=== PATIENT | male | born 1955 | race Caucasian/White ===

== ENCOUNTER 2022-08-18 14:39 | Inpatient (IN) ==
[2022-08-18 15:27] LABS: Basophils # (auto) 0.03 K/uL (0-0.2); Basophils % (auto) 0.3 %; Eosinophils % (auto) 0.9 %; Hematocrit (blood only) 43.7 % (42.0-52.0); Hemoglobin 14.3 g/dl (14.0-18.0); Immature Granulocytes % (auto) 0.9 %; Lymphocytes # (auto) 1.85 K/uL (1.2-3.4); Lymphocytes % (auto) 15.8 %; Mean Corpuscular Hemoglobin 29.4 pg (25.0-34.0); Mean Corpuscular Hgb Conc 32.7 g/dL (32.0-36.0); Mean Corpuscular Volume 89.7 fL (80.0-100.0); Mean Platelet Volume 8.8 fL (9.4-12.4); Monocytes # (auto) 0.76 K/uL (0.11-0.59); Monocytes % (auto) 6.5 %; Neutrophils # (auto) 8.87 K/uL (1.40-6.50); Neutrophils % (auto) 75.6 %; Platelet Count 236 K/uL (130-400); RDW Coefficient of Variation 13.4 % (11.5-14.5); RDW Standard Deviation 44.1 fL (36.4-46.3); Red Blood Count 4.87 M/uL (4.70-6.10); White Blood Count 11.71 K/ul (4.8-10.8)
--- NOTE | 2022-08-18 15:35 | Emergency Department Note ---
Impression & Plan Bilateral pulmonary embolism, Hypoxia ED Provider Note NAME: JUAN ANTONIO ROY AGE: 67 SEX: M : 1955 ARRIVES VIA: Walk-In INFORMANT: Patient, ED PROVIDER(S): Ki Galvan DO CHIEF COMPLAINT: Difficulty breathing HPI: The patient is a 67-year-old male who presented to the emergency department for an evaluation of shortness of breath. The patient was seen in our facility as well as by his primary care physician. He was initially seen by his primary care physician and started on an antibiotic. He was then seen in our facility. He had a complete work-up and was diagnosed with bronchitis. He was started on a new antibiotic. The patient states he has been having ongoing symptoms and he was contacted by his primary care physician who ordered outpatient laboratory studies. He was found to have a positive D-dimer. He was sent to the emergency department for further evaluation. The patient denies having any chest pain at this time. He does complain of some lower extremity swelling but no pain. He denies having any abdominal pain. He had no hemoptysis. The patient was found to be hypoxic on arrival to the emergency department and was placed on supplemental oxygen. He does not normally wear oxygen. ROS: See above HPI for pertinent positives & negatives. A total of 10 systems reviewed and were otherwise negative. PAST MEDICAL HISTORY: See Below PAST SURGICAL HISTORY: See Below FAMILY HISTORY: See Below SOCIAL HISTORY: See Below HOME MEDICATIONS: See Below ALLERGIES: See Below VITALS: See Below PHYSICAL EXAMINATION: GENERAL: Patient is awake alert in no acute distress patient is resting comfortably and showing no signs of anxiety EYES: The conjunctivae are clear. The pupils are round and reactive. EARS, NOSE, MOUTH AND THROAT: The nose is without any evidence of any deformity. Mucous membranes are moist. Tongue is midline. NECK: The neck is nontender and supple. RESPIRATORY: Diminished breath sounds are noted throughout. There is no wheezing. There is no tachypnea or conversational dyspnea. CARDIOVASCULAR: Regular rate and rhythm noted there no murmurs rubs or gallops normal S1 normal S2. GASTROINTESTINAL: The abdomen is soft. Abdomen is nontender. MUSCULOSKELETAL/EXTREMITIES: There is no evidence of gross deformity full range of motion is noted in the hips and shoulders. SKIN: Skin is warm and dry. Trace pedal edema was noted bilaterally. NEUROLOGIC: Patient is awake alert and oriented x3 MEDICAL DECISION MAKING: The patient is a 67-year-old male who presented to the emergency department for difficulty breathing. The patient was seen by his primary care physician and then in our emergency department recently for similar complaints. He was felt to be suffering from bronchitis as he had cough and difficulty breathing. He was started on medications for this but was not getting better. His primary care physician ordered an outpatient D-dimer which prompted the patient to come to the emergency department for further evaluation and CT of the chest. I discussed the patient's laboratory and radiographic studies with him. CT of the chest appears to be consistent with bilateral pulmonary embolism as well as possible pulmonary infarct. I discussed his condition with the on-call [facility]ist. The patient was started on heparin. The patient was placed on supplemental oxygen with significant improvement of his breathing. Triage Nursing notes reviewed. Prior medical records reviewed Vital Signs: reviewed and remarkable for elevated blood pressure and hypoxia. Differential diagnosis: Reactive airway disease, pneumonia, pneumothorax, COPD, CHF, infections, cardiac ischemia, pulmonary embolism, musculoskeletal, gastrointestinal, as well as other pathologies. ER treatment provided: See below Diagnostics interpreted by me: ECG: EKG was obtained in the emergency department. My interpretation is normal sinus rhythm at 67 bpm. There is no ectopy. There is no acute ST segment abnormalities noted. This was compared to a tracing from August 10, 2022. No leeroy nges were noted. Cardiac Monitoring: An order was placed for continuous cardiac monitoring. The monitor shows a rate of 73 bpm with sinus rhythm. Laboratory studies: As stated above and show below. Imaging studies: See below. Radiographic imaging was reviewed by myself Consultation(s): I discussed this case with Dylan who is on-call for the [facility]ist group ED COURSE: Procedures: none Critical Care: I have personally spent greater than 45 minutes of critical care time in the direct management of this patient. This includes bedside care, interpretation of diagnostic studies, and testing, discussion with consultants, patient, and family members, and other required patient management activities. This 45 minutes is in excess of all separately billable procedures. Past Med/Surg History Medical History Recurrent bacterial cystitis Surgical History H/O hernia repair 1963 History of root canal procedure 1988 Social History Smoking Status: Never smoker Do You Dip or Chew Tobacco: No; Hx Alcohol Use: No Preferred Language: Kyrgyz marital status: Current Living Situation: Spouse current occupational status: employed current occupation: Banker Feels Safe at Home: Yes Diet: regular Allergies Allergies Allergy/AdvReac Type Severity Reaction Status Date / Time amoxicillin Allergy Severe Hives Unverified 08/10/22 18:47 Home Meds Home Medications Medication Instructions Recorded Confirmed cholecalciferol (vitamin D3) 25 25 mcg PO DAILY 02/27/21 08/18/22 mcg (1,000 unit) tablet (Vitamin D3) tamsulosin 0.4 mg capsule (Flomax) 0.4 mg PO DAILY 02/27/21 08/18/22 zinc 50 mg tablet 50 mg PO DAILY 02/27/21 08/18/22 Previous Rx's Medication Instructions Recorded benzonatate 100 mg capsule 100 mg PO TID PRN cough #15 caps 08/10/22 Results & Data (ED) Vital Signs Vital Signs - 24 hr 08/18/22 14:42 08/18/22 14:45 08/18/22 16:14 Temperature 36.6 C Temperature Source Temporal Artery Scan Pulse Rate 79 73 Respiratory Rate 20 Respiratory Effort / Characteristics Non-Labored Spontaneous Respiratory Depth Normal Blood Pressure 170/83 H Blood Pressure Mean 112 Pulse Oximetry 89 L 94 Oxygen Delivery Method Room Air Nasal Cannula Oxygen Flow Rate 2 Sepsis Recent Fever Within 48 Hours No Sepsis New/Unexplained Change in Mental Status No Sepsis Action Taken by Nursing No Action Required Home Medications Current Medication List: was personally reviewed by me Laboratory Data Attestation: I reviewed the patient's lab results. 08/18/22 15:13 08/18/22 15:13 Lab Results 08/18/22 08/18/22 08/18/22 Range/Units 15:13 15:13 15:13 WBC 11.71 H (4.8-10.8) K/ul RBC 4.87 (4.70-6.10) M/uL Hgb 14.3 (14.0-18.0) g/dl Hct 43.7 (42.0-52.0) % MCV 89.7 (80.0-100.0) fL MCH 29.4 (25.0-34.0) pg MCHC 32.7 (32.0-36.0) g/dL RDW Std Deviation 44.1 (36.4-46.3) fL RDW Coeff of Louie 13.4 (11.5-14.5) % Plt Count 236 (130-400) K/uL MPV 8.8 L (9.4-12.4) fL Immature Gran % (Auto) 0.9 % Neut % (Auto) 75.6 % Lymph % (Auto) 15.8 % [place] % (Auto) 6.5 % Eos % (Auto) 0.9 % Baso % (Auto) 0.3 % Neut # (Auto) 8.87 H (1.40-6.50) K/uL Lymph # (Auto) 1.85 (1.2-3.4) K/uL [place] # (Auto) 0.76 H (0.11-0.59) K/uL Eos # (Auto) 0.10 (0-0.50) K/uL Baso # (Auto) 0.03 (0-0.2) K/uL Immature Gran # (Auto) 0.10 (0.01-0.20) K/uL PT 11.9 (9.0-12.0) Seconds INR 1.1 (0.9-1.1) APTT 27.5 (21.0-31.0) Seconds PTT Ratio 1.0 Sodium 138 (136-145) mmol/L Potassium 4.5 (3.5-5.1) mmol/L Chloride 102 (98-107) mmol/L Carbon Dioxide 30 (21-32) mmol/L Anion Gap 6 (3-11) BUN 17 (6-23) mg/dl Creatinine 1.20 (0.6-1.4) mg/dl Est Cr Clr Drug Dosing 71.5 ml/min Est GFR ( Amer) 71.1 ml/min Est GFR (Non-Af Amer) 61.3 ml/min BUN/Creatinine Ratio 14.2 (10-20) Glucose 94 (70-99(Fasting)) mg/dl Calcium 9.3 (8.6-10.3) mg/dl Total Bilirubin 0.4 (0.2-1.0) mg/dl AST 26 (13-39) U/L ALT 34 (7-52) U/L Alkaline Phosphatase 66 (34-104) U/L Troponin I High Sens 5.8 (0-20) pg/ml Total Protein 7.0 (6.0-8.3) gm/dl Albumin 3.7 (3.4-5.0) gm/dl Globulin 3.3 (2.5-4.0) gm/dl Albumin/Globulin Ratio 1.1 (0.9-2) Administered Medications Discontinued Medications Ioversol (Optiray 320 500ml) 113 ml IV ONCE ONE Stop: 08/18/22 15:48 Last Admin: 08/18/22 15:48 Dose: 113 ml Documented By: KEKE Imaging Data Attestation: I personally reviewed and interpreted this imaging study as follows: My Impression: CT of the chest was obtained in the emergency department. My interpretation is bilateral pulmonary embolism, final report pending. Radiologist's Impression: Chest CTA 08/18/22 14:50 CT angio chest PE protocol CLINICAL HISTORY: PE TECHNIQUE: Multidetector row helical CT of the chest was performed with angiographic protocol. Coronal and sagittal reformations were obtained. Coronal and sagittal MIPS were obtained from the axial data set and were submitted for review. Automated dose lowering techniques and/or adjustment according to patient size were utilized for this exam. CT DOSE: 839.32 mGy.cm Comparison: None available at the time of this dictation. FINDINGS: Lungs and pleura: Airspace opacity is in the right greater than left lower lobe. Heart and pericardium: No right heart strain is seen. Vessels: There is extensive pulmonary embolus in the right main pulmonary artery as well as numerous lobar, segmental, and subsegmental emboli in the bilateral lower lungs. Mediastinum and antonia: Unremarkable. Chest wall and lower neck: Unremarkable. Abdomen: Unremarkable. Bones: Unremarkable. IMPRESSION: Extensive main branch, lobar, segmental, and subsegmental pulmonary emboli without evidence of right heart strain. Airspace densities in the bilateral lower lungs may represent developing pulmonary infarcts versus atelectasis/pneumonia. ACT 112: Negative or not required by law. Electronically signed by: Balbir Garcia M.D. 08/18/2022 4:21 PM Discharge Plan Visit Data Chief Complaint: Testing Request Stated Complaint: REF FOR BLOOD CLOT, WANTS CT ED Provider: Ki Galvan Discharge Problem: Bilateral pulmonary embolism, Hypoxia Patient Disposition: Being Evaluated by Hospitalist Forms Stand Alone Forms: My [facility] Prescriptions Prescriptions: No Action benzonatate 100 mg capsule 100 mg PO TID PRN (Reason: cough) Qty: 15 0RF tamsulosin [Flomax] 0.4 mg capsule 0.4 mg PO DAILY zinc 50 mg Tablet 50 mg PO DAILY cholecalciferol (vitamin D3) [Vitamin D3] 25 mcg (1,000 unit) Tablet 25 mcg PO DAILY Referrals Referrals: Dave Mary MD [Primary Care Provider] -
[2022-08-18 15:47] LABS: Albumin Globulin Ratio 1.1 (0.9-2); Albumin Level 3.7 gm/dl (3.4-5.0); BUN Creatinine Ratio 14.2 (10-20); Bilirubin,Total 0.4 mg/dl (0.2-1.0); Calcium 9.3 mg/dl (8.6-10.3); Creatinine Clr Calc Pharmacy 71.5 ml/min; Est GFR (African American) 71.1 ml/min; Est GFR (Non-African American) 61.3 ml/min; Globulin 3.3 gm/dl (2.5-4.0); Potassium 4.5 mmol/L (3.5-5.1)
[2022-08-18] MEDS ORDERED: OPTIRAY 320 500ml IV ONE (15:47)
[2022-08-18 15:51] LABS: Troponin I High Sensitivity 5.8 pg/ml (0-20)
[2022-08-18] MEDS ORDERED: Heparin IV Adult Wt-Based Standard WITH Bolus Protocol IV STA (15:55)
[2022-08-18 16:09] LABS: INR 1.1 (0.9-1.1); Partial Thromboplastin Time 27.5 Seconds (21.0-31.0); Prothrombin Time 11.9 Seconds (9.0-12.0)
[2022-08-18] MEDS ORDERED: HEPARIN SOD (PORCINE) 1000 UNIT/ML IV ONE ×2 (16:10→16:45)
--- NOTE | 2022-08-18 16:10 | History & Physical Report ---
Date of Service August 18, 2022 Assessment & Plan (1) Acute respiratory failure with hypoxia: Plan: -Admit to the PCU on tele and pulse oximetry -Currently stable on 2L NC, hemodynamically stable, without chest pain -Unsure of the etiology at this time, could have been the long car drive to and from [place] approximately 3 weeks ago -Hypercoagulable workup obtained prior to starting heparin drip, continue heparin drip overnight, can covert to oral therapy when stable -Wean off O2 as able, goal is 95% as he is without previous hx of lung disease -Will obtain TTE tomorrow -Heparin for DVT PPX -AM CBC, BMP, PT/INR and aptt (2) Bilateral pulmonary embolism: Plan: -See acute hypoxic respiratory failure (3) BPH loc w urin obs/LUTS: Plan: -Continue flomax (4) Cough: Plan: -Likely due to his PE's, may have had a component of pneumonia/vial illness a few weeks ago -No hemoptysis -Prn robitussin Plan The patient was discussed with Dr. Han at the time of the admission History of Present Illness Chief Complaint: Abnormal outpatient labs Primary Care Provider: Dave Mary MD Keegan is a 67 year old male with a PMH consistent with obesity, vit D deficiency, and BPH who presented to the [facility] ED on 08/18/22 at the recommendation of his PCP for significantly elevated D-dimer. In the ED the patient was noted to be hypoxic in the high 80's on RA but otherwise stable. Labs were significant for an improving leukocytosis of 11 with left shift of 8 compared to 08/10, CMP WNL, and full respiratory biofire panel in process at the time of admission. CTA of the chest with PE protocol shows "Extensive main branch, lobar, segmental, and subsegmental pulmonary emboli without evidence of right heart strain. Airspace densities in the bilateral lower lungs may represent developing pulmonary infarcts versus atelectasis/pneumonia.". Prior to admission the patient was ordered a heparin drip. We were able to obtain his initial hypercoagulable workup prior to the heparin drip being started. At the time of the exam the patient was sitting in bed in no acute distress with his sitting bedside, history was obtained from both. The patient initially started to develop a productive cough wit green sputum and BUENO appr oximately 2-3 weeks ago. He was seen by his PCP who prescribed him a 5 day course of antibiotics and albuterol, which he completed without improvement of his symptoms. He was seen at the [facility] ED on 08/10/22 for the same symptoms and was discharged on a 7 day course of cefdinir and Tessalon pearls, again, without relief. His PCP ordered an outpatient D-dimer yesterday which came back significantly elevated and called the patient to go to the ED for the CT scan. The patient denies a previous history of tobacco abuse, recent procedures/surgery, recent injuries, previous cancer, and previous hx of h ypercoagulability. The patient and his did drive to [place] approximately 3 weeks ago to help their son move. They took multiple stops during the trip where he got out of the car and walked. He does not think he injured his legs while helping his son move. He is unsure if he was having his symptoms prior to the trip. He is currently very comfortable in bed and is asymptomatic, he is getting SOB with exertion. When asked, he denies asymmetric leg swelling, erythema, or pain. His thinks that he has been having increased BL leg swelling but no erythema. Please refer to Dr. Han's attestation for any changes to the treatment plan. Allergies Allergy/AdvReac Type Severity Reaction Status Date / Time amoxicillin Allergy Severe Hives Unverified 08/10/22 18:47 Home Medications Medication Instructions Recorded Confirmed Type cholecalciferol (vitamin D3) 25 25 mcg PO DAILY 02/27/21 08/18/22 History mcg (1,000 unit) tablet (Vitamin D3) tamsulosin 0.4 mg capsule (Flomax) 0.4 mg PO DAILY 02/27/21 08/18/22 History zinc 50 mg tablet 50 mg PO DAILY 02/27/21 08/18/22 History benzonatate 100 mg capsule 100 mg PO TID PRN cough #15 caps 08/10/22 08/18/22 Rx apixaban 5 mg (74 tabs) tablets in 5 mg PO BID #74 ea 08/19/22 Rx a dose pack (Eliquis) Past Med/Surg History Medical History Recurrent bacterial cystitis Surgical History H/O hernia repair 1963 History of root canal procedure 1988 Social History Smoking Status: Never smoker Do You Dip or Chew Tobacco: No; Hx Alcohol Use: No Hx Substance Use: No Preferred Language: Kosovan Communication Ability: Effective Heavy Media Operator Required: No Beliefs That Will Affect Care: None marital status: Current Living Situation: Spouse current occupational status: employed current occupation: Banker Feels Safe at Home: Yes Diet: regular Assistive Devices: None Physical Exam Physical Exam: Physical Exam: General: In no acute distress, stated age, well-nourished, good hygiene HEENT: Normocephalic, atraumatic, no scleral icterus, pupils around round, symmetrical, and reactive to light, moist mucus membranes, trachea midline, no thyromegaly Chest/Pulm: No respiratory distress, symmetrical chest expansion, clear breath sounds throughout Cardiac: RRR, no murmurs noted Abdomen: Negative for ascites and bruising, normoactive bowel sounds, soft, non-tender to palpation throughout Musculoskeletal: Symmetrical and without signs of acute trauma, upper and lower extremities with full ROM, no atrophy, spasticity, or flaccidity Extremities: Radial, dorsalis pedis, and posterior tibial pulses are intact and symmetrical, +1 edema noted in the BL LE's Skin: Warm, dry, no rashes , lesions, or scars noted Neuro: Alert and oriented to person, place, month, year, and president, no focal defects, CN II-XII tested and intact, no tremors noted Psych: No acute distress, calm and cooperative during the exam Results & Data Results & Data Vital Signs (Past 12 Hours) Vital Signs Temp Pulse Resp BP Pulse Ox O2 Del Method O2 Flow Rate 08/18/22 14:45 94 Nasal Cannula 2 08/18/22 14:42 36.6 C 79 20 170/83 H 89 L Room Air Laboratory Results Abnormal lab results 08/18/22 Range/Units 15:13 WBC 11.71 H (4.8-10.8) K/ul MPV 8.8 L (9.4-12.4) fL Neut # (Auto) 8.87 H (1.40-6.50) K/uL [place]itus # (Auto) 0.76 H (0.11-0.59) K/uL Diagnostic Findings Chest CTA 08/18/22 14:50 CT angio chest PE protocol CLINICAL HISTORY: PE TECHNIQUE: Multidetector row helical CT of the chest was performed with angiographic protocol. Coronal and sagittal reformations were obtained. Coronal and sagittal MIPS were obtained from the axial data set and were submitted for review. Automated dose lowering techniques and/or adjustment according to patient size were utilized for this exam. CT DOSE: 839.32 mGy.cm Comparison: None available at the time of this dictation. FINDINGS: Lungs and pleura: Airspace opacity is in the right greater than left lower lobe. Heart and pericardium: No right heart strain is seen. Vessels: There is extensive pulmonary embolus in the right main pulmonary artery as well as numerous lobar, segmental, and subsegmental emboli in the bilateral lower lungs. Mediastinum and antonia: Unremarkable. Chest wall and lower neck: Unremarkable. Abdomen: Unremarkable. Bones: Unremarkable. IMPRESSION: Extensive main branch, lobar, segmental, and subsegmental pulmonary emboli without evidence of right heart strain. Airspace densities in the bilateral lower lungs may represent developing pulmonary infarcts versus atelecta sis/pneumonia. ACT 112: Negative or not required by law. Electronically signed by: Balbir Garcia M.D. 08/18/2022 4:21 PM ECG Additional Comments: Normal sinus rhythm Normal ECG When compared with ECG of 10-AUG-2022 18:07, Nonspecific T wave abnormality no longer evident in Anterior leads Code Status & VTE Plan Code Status Full code VTE Prophylaxis Plan VTE Prophylaxis will be ordered: Yes Supervising Physician Co-Signing Physician Notes Patient seen and examined, chart reviewed, case discussed with Dylan Ricci PA-C and I agree with the assessment and plan as above except as otherwise noted Labs and images reviewed 67-year-old male who presents with acute hypoxic respiratory failure after long car drive. Found to have bilateral PEs. At bedside patient denies chest pain, chest pressure, and inspiratory pain does endorse shortness of breath. Has not had any family history of bleeding diathesis or leg swelling, no leg injuries. Lungs are clear, pulse is tachycardic on admission. No leg asymmetry. Agree with anticoagulation, target conversion to DOAC and discharge if remaining stable. Agree with assessment and chronic management as noted above. PG Care Time/CCT Total # of Minutes Spent Total Time Spent with Patient: Total time spent is greater than 50% in coordination of care (as documented) at patient's floor/unit and/or counseling patient: Coding [place] [address] INT INP/OBS CARE 3/75MIN Patient Type Established Medical Decision Making High Complexity Diagnoses Acute respiratory failure with hypoxia J96.01 Bilateral pulmonary embolism I26.99 BPH loc w urin obs/LUTS N40.1 Cough R05.9
[2022-08-18] MEDS ORDERED: Heparin IV Adult Wt-Based Standard WITH Bolus Protocol IV SCH (16:15)
--- NOTE | 2022-08-18 16:23 | CT Scan Report ---
CT angio chest PE protocol CLINICAL HISTORY: PE TECHNIQUE: Multidetector row helical CT of the chest was performed with angiographic protocol. Kennedy l and sagittal reformations were obtained. Coronal and sagittal MIPS were obtained from the axial doug a set and were submitted for review. Automated dose lowering techniques and/or adjustment according to patient size were utilized for this exam. CT DOSE: 839.32 mGy.cm Comparison: None available at the time of this dictation. FINDINGS: Lungs and pleura: Airspace opacity is in the right greater than left lower lobe. Heart and pericardium: No right heart strain is seen. Vessels: There is extensive pulmonary embolus in the right main pulmonary artery as well as numerous lobar, segmental, and subsegmental emboli in the bilateral lower lungs. Mediastinum and antonia: Unremarkable. Chest wall and lower neck: Unremarkable. Abdomen: Unremarkable. Bones: Unremarkable. IMPRESSION: Extensive main branch, lobar, segmental, and subsegmental pulmonary emboli without evidence of right heart strain. Airspace densities in the bilateral lower lungs may represent developing pulmonary infa rcts versus atelectasis/pneumonia. ACT 112: Negative or not required by law. Electronically signed by: Balbir Garcia M.D. 08/18/2022 4:21 PM
[2022-08-18] MEDS: HEPARIN SODIUM/DEXTROSE 25,000 UNITS/500 ML BAG IV SCH (16:43)
[2022-08-18 17:14] LABS: Adenovirus PCR Not Detected (NotDetected); Bordetella parapertussis PCR Not Detected (NotDetected); Bordetella pertussis PCR Not Detected (NotDetected); Chlamydia pneumoniae PCR Not Detected (NotDetected); Coronavirus 229E PCR Not Detected (NotDetected); Coronavirus CoV-2 (COVID19)PCR Not Detected (NotDetected); Coronavirus HKU1 PCR Not Detected (NotDetected); Coronavirus NL63 PCR Not Detected (NotDetected); Coronavirus OC43PCR Not Detected (NotDetected); Human Metapneumovirus PCR Not Detected (NotDetected); Influenza A PCR Not Detected (NotDetected); Influenza B PCR Not Detected (NotDetected); Mycoplasma pneumoniae PCR Not Detected (NotDetected); Parainfluenza Virus 1 PCR Not Detected (NotDetected); Parainfluenza Virus 2 PCR Not Detected (NotDetected); Parainfluenza Virus 3 PCR Not Detected (NotDetected); Parainfluenza Virus 4 PCR Not Detected (NotDetected); Respiratory Syncytial VirusPCR Not Detected (NotDetected); Rhinovirus/Enterovirus PCR Not Detected (NotDetected)
[2022-08-18] MEDS: guaiFENesin SUGAR FREE 200 MG/10 ML UDC PO PRN (18:31)
--- NOTE | 2022-08-18 20:31 | Electrocardiogram Report ---
Test Reason : Blood Pressure : / mmHG Vent. Rate : 067 BPM Atrial Rate : 067 BPM P-R Int : 140 ms QRS Dur : 094 ms QT Int : 406 ms P-R-T Axes : 065 044 069 degrees QTc Int : 429 ms Normal sinus rhythm Normal ECG When compared with ECG of 10-AUG-2022 18:07, Nonspecific T wave abnormality no longer evident in Anterior leads Confirmed by Tyrell Mary ([id number]) on 08/18/2022 8:30:47 PM Referred By: Confirmed By:Mitchell Mary
[2022-08-18] MEDS ORDERED: ACETAMINOPHEN 325 MG TAB PO PRN (21:35)
[2022-08-19] MEDS: guaiFENesin SUGAR FREE 200 MG/10 ML UDC PO PRN (00:35)
[2022-08-19] MEDS ORDERED: KETOROLAC TROMETHAMINE 15 MG/ML VIAL IV ONE (00:50)
[2022-08-19] MEDS ORDERED: BENZONATATE 100 MG CAPSULE PO PRN (00:50)
[2022-08-19 01:18] LABS: Partial Thromboplastin Ratio 1.7
[2022-08-19 01:19] LABS: Partial Thromboplastin Time 46.7 Seconds (21.0-31.0)
[2022-08-19] MEDS: HEPARIN SODIUM/DEXTROSE 25,000 UNITS/500 ML BAG IV SCH (07:19)
[2022-08-19 07:54] LABS: Basophils # (auto) 0.03 K/uL (0-0.2); Basophils % (auto) 0.3 %; Eosinophils # (auto) 0.07 K/uL (0-0.50); Eosinophils % (auto) 0.7 %; Hematocrit (blood only) 41.5 % (42.0-52.0); Hemoglobin 13.8 g/dl (14.0-18.0); Immature Granulocytes # (auto) 0.09 K/uL (0.01-0.20); Immature Granulocytes % (auto) 0.9 %; Lymphocytes # (auto) 2.04 K/uL (1.2-3.4); Lymphocytes % (auto) 20.2 %; Mean Corpuscular Hemoglobin 29.2 pg (25.0-34.0); Mean Corpuscular Hgb Conc 33.3 g/dL (32.0-36.0); Mean Corpuscular Volume 87.7 fL (80.0-100.0); Monocytes # (auto) 0.81 K/uL (0.11-0.59); Neutrophils # (auto) 7.08 K/uL (1.40-6.50); Neutrophils % (auto) 69.9 %; Platelet Count 202 K/uL (130-400); RDW Coefficient of Variation 13.5 % (11.5-14.5); RDW Standard Deviation 43.6 fL (36.4-46.3); Red Blood Count 4.73 M/uL (4.70-6.10); White Blood Count 10.12 K/ul (4.8-10.8)
--- NOTE | 2022-08-19 08:03 | Hospitalist Progress Note ---
Date of Service August 19, 2022 Assessment & Plan (1) Acute respiratory failure with hypoxia: Plan: -Admit to the PCU on tele and pulse oximetry -Currently stable on 2L NC, hemodynamically stable, without chest pain -Unsure of the etiology at this time, could have been the long car drive to and from [place] approximately 3 weeks ago -Hypercoagulable workup obtained prior to starting heparin drip, continue heparin drip overnight, can covert to oral therapy when stable -Wean off O2 as able, goal is 95% as he is without previous hx of lung disease -Will obtain TTE tomorrow -Heparin for DVT PPX -AM CBC, BMP, PT/INR and aptt (2) Bilateral pulmonary embolism: Plan: -See acute hypoxic respiratory failure (3) BPH loc w urin obs/LUTS: Plan: -Continue flomax (4) Cough: Plan: -Likely due to his PE's, may have had a component of pneumonia/vial illness a few weeks ago -No hemoptysis -Prn robitussin Plan The patient was discussed with Dr. Han at the time of the admission Admission and Anticipated Discharge Date Admission Date: August 18, 2022 Results & Data Results & Data Vital Signs (Past 12 Hours) Vital Signs Temp Pulse Pulse Resp BP Pulse Ox O2 Del Method 08/19/22 07:52 36.8 C 64 18 151/88 H 96 Nasal Cannula 08/19/22 04:17 67 08/19/22 03:00 36.7 C 61 20 137/81 99 Nasal Cannula 08/18/22 23:00 36.7 C 65 18 163/84 H 98 Nasal Cannula O2 Flow Rate 08/19/22 07:52 2.0 08/19/22 04:17 08/19/22 03:00 2 08/18/22 23:00 2
[2022-08-19 08:14] LABS: Albumin Globulin Ratio 1.1 (0.9-2); Albumin Level 3.5 gm/dl (3.4-5.0); BUN Creatinine Ratio 16.7 (10-20); Bilirubin,Total 0.6 mg/dl (0.2-1.0); Calcium 9.2 mg/dl (8.6-10.3); Creatinine Clr Calc Pharmacy 83.3 ml/min; Est GFR (African American) 86.5 ml/min; Est GFR (Non-African American) 74.6 ml/min; Globulin 3.1 gm/dl (2.5-4.0); Potassium 4.5 mmol/L (3.5-5.1); Total Protein 6.6 gm/dl (6.0-8.3)
[2022-08-19 08:39] LABS: INR 1.1 (0.9-1.1); Partial Thromboplastin Ratio 1.6; Prothrombin Time 12.2 Seconds (9.0-12.0)
[2022-08-19 08:40] LABS: Partial Thromboplastin Time 44.6 Seconds (21.0-31.0)
[2022-08-19] MEDS ORDERED: TAMSULOSIN HCL 0.4 MG CAP PO SCH (09:00)
[2022-08-19] MEDS: APIXABAN 5 MG TABLET PO SCH ×2 (09:17→17:51)
--- NOTE | 2022-08-19 11:36 | XCELERA ---
[id number]
--- NOTE | 2022-08-19 16:31 | Discharge Summary ---
Date of Service August 19, 2022 Admission HPI Per Admitting Provider Keegan is a 67 year old male with a PMH consistent with obesity, vit D deficiency, and BPH who presented to the [facility] ED on 08/18/22 at the recommendation of his PCP for significantly elevated D-dimer. In the ED the patient was noted to be hypoxic in the high 80's on RA but otherwise stable. Labs were significant for an improving leukocytosis of 11 with left shift of 8 compared to 08/10, CMP WNL, and full respiratory biofire panel in process at the time of admission. CTA of the chest with PE protocol shows "Extensive main branch, lobar, segmental, and subsegmental pulmonary emboli without evidence of right heart strain. Airspace densities in the bilateral lower lungs may represent developing pulmonary infarcts versus atelectasis/pneumonia.". Prior to admission the patient was ordered a heparin drip. We were able to obtain his initial hypercoagulable workup prior to the heparin drip being started. At the time of the exam the patient was sitting in bed in no acute distress with his sitting bedside, history was obtained from both. The patient initially started to develop a productive cough wit green sputum and BUENO approximately 2-3 weeks ago. He was seen by his PCP who prescribed him a 5 day course of antibiotics and albuterol, which he completed without improvement of his symptoms. He was seen at the [facility] ED on 08/10/22 for the same symptoms and was discharged on a 7 day course of cefdinir and Tessalon pearls, again, without relief. His PCP ordered an outpatient D-dimer yesterday which came back significantly elevated and called the patient to go to the ED for the CT scan. The patient denies a previous history of tobacco abuse, recent procedures/surgery, recent injuries, previous cancer, and previous hx of hypercoagulability. The patient and his did drive to [place] approximately 3 weeks ago to help their son move. They took multiple stops during the trip where he got out of the car and walked. He does not think he injured his legs while helping his son move. He is unsure if he was having his symptoms prior to the trip. He is currently very comfortable in bed and is asymptomatic, he is getting SOB with exertion. When asked, he denies asymmetric leg swelling, erythema, or pain. His thinks that he has been having increased BL leg swelling but no erythema. Please refer to Dr. Han's attestation for any changes to the treatment plan. Admission Exam Per Admitting Provider General:In no acute distress, stated age, well-nourished, good hygiene HEENT:Normocephalic, atraumatic, no scleral icterus, pupils around round, symmetrical, and reactive to light, moist mucus membranes, trachea midline, no thyromegaly Chest/Pulm:No respiratory distress, symmetrical chest expansion, clear breath sounds throughout Cardiac:RRR, no murmurs noted Abdomen:Negative for ascites and bruising, normoactive bowel sounds, soft, non-tender to palpation throughout Musculoskeletal:Symmetrical and without signs of acute trauma, upper and lower extremities with full ROM, no atrophy, spasticity, or flaccidity Extremities:Radial, dorsalis pedis, and posterior tibial pulses are intact and symmetrical, +1 edema noted in the BL LE's Skin:Warm, dry, no rashes , lesions, or scars noted Neuro:Alert and oriented to person, place, month, year, and president, no focal defects, CN II-XII tested and intact, no tremors noted Psych:No acute distress, calm and cooperative during the exam Principal Diagnosis Bilateral lobar, segmental, and subsegmental pulmonary emboli. Discharge Exam General: No acute distress HEENT: PERRLA. Normal conjunctiva, anicteric sclera. Oropharynx normal. Respiratory: Normal respiratory effort, diminished breath sounds at left lung base. Otherwise clear to auscultation bilaterally with good air movement. Cardiovascular: RRR without murmurs, gallops, or rubs. No pedal edema. GI: Soft abdomen with normal bowel sounds heard on auscultation. Nontender x4 quadrants. Neuro: Alert and oriented x3. Discharge Data Allergies Allergy/AdvReac Type Severity Reaction Status Date / Time amoxicillin Allergy Severe Hives Unverified 08/10/22 18:47 Consultations 08/18/22 16:04 ED Decision to Admit Stat Ordered Studies 08/18/22 14:50 CT angio chest PE protocol Stat Hospital Course (1) Bilateral pulmonary embolism: 67 M with no significant past medical history, save BPH on tamsulosin, who presented with persistent cough x3 weeks, elevated D-dimer and clinic and was admitted for bilateral lobar, segmental, and subsegmental pulmonary emboli discovered on CTA. Now stable, and on p.o. anticoagulation. Bilateral pulmonary emboli -Cough x3 weeks. Apparently began after long trip to [place]. Cough unresponsive to supportive therapy. -D-dimer ordered on outpatient clinic follow-up, found to be severely elevated. Sent to the emergency room. -Chest CTA: Extensive main branch, lobar, segmental, and subsegmental pulmonary emboli without evidence of right heart strain. Airspace densities in the bilateral lower lungs may represent developing pulmonary infarction versus atelectasis/pneumonia. -Started on IV heparin. Transitioned to oral apixaban 10 mg in the a.m. -No evidence of right heart strain on EKG, subsequent echocardiogram (EF=55-60%, normal LV wall motion). * Discharged on apixaban 10 mg twice daily x7 days, then 5 mg twice daily x3 months. * Prescribed Eliquis x1 month starter pack. Follow-up with outpatient PCP for subsequent refills for remainder of treatment course. BPH -Chronic; managed on tamsulosin 0.4 mg daily. * Continue home regimen. (2) BPH loc w urin obs/LUTS: Total Time Total Time Spent Total Time Spent (In Minutes): Please see attending attestation. Discharge Plan Discharge Items Patient Disposition: Home - Self-Care Reason For Visit: ABDNORMAL OUTPATIENT LABS Discharge Diagnosis: Bilateral pulmonary emboli Activity: Per Instructions section Non-emergency contact: Primary Care Provider Call non-emergency contact if: you have any medication questions Follow-up/Referrals: Dave Mary MD [Primary Care Provider] - (PCP follow up appointment to be made 5 to 7 days after discharge. Office was closed at time of discharge. Please call office to schedule follow up appointment first thing 08/20/22. thank you) Diet: Regular Addtl Attending Provider Instructions: Dear Keegan, You were brought to the hospital from the clinic because of your elevated D- dimer. We evaluated you further and found that you had multiple blood clots of your lungs bilaterally, a condition known as a pulmonary embolism (emboli). You were started on intravenous anticoagulants, which we transitioned to oral anticoagulants this morning. You had an ultrasound of your heart scanned to confirm that you did not have further damage to your heart as a result, which you did not. Therefore, we feel you are ready to be discharged home. 1. We started you on a medication called apixaban, or Eliquis. Please take apixaban 10 mg twice daily for 7 days, then take 5 mg twice daily for 3 months. 2. Please follow-up with your primary care physician within 1 to 2 weeks of your discharge. It is important that you visit with your PCP so that they can further coordinate your care if necessary. 3. You may continue to take your other home medications as directed, unless otherwise instructed to by your primary care physician. Thank you for entrusting us with your care here at [facility]. If you have any questions or concerns about your care here, you may reach us at [phone]. Pending Studies at Discharge: Yes Stand-Alone Forms: [facility], Smoking Cessation Medications and DC Order Prescriptions: New Eliquis 5 mg (74 tabs) tablets,dose pack 5 mg PO BID Qty: 74 0RF Continued benzonatate 100 mg capsule 100 mg PO TID PRN (Reason: cough) Qty: 15 0RF tamsulosin [Flomax] 0.4 mg capsule 0.4 mg PO DAILY zinc 50 mg Tablet 50 mg PO DAILY cholecalciferol (vitamin D3) [Vitamin D3] 25 mcg (1,000 unit) Tablet 25 mcg PO DAILY Discharge Orders: Discharge Order (Routine); Ordered 08/19/22 Ordered By: Starr Jane Admission Data Admit Date/Time: 08/18/22 16:27 Attending Provider: Aureliano Blackwell Admit Provider: Dilip Han Primary Care Provider: Dave Mary Other Providers: Dilip Han Other Interventions: Discharge Summary Assessment (RN) Last Done: 08/19/22 17:33 Supervising Physician Co-Signing Physician Notes Attending attestation Pt seen and examined in concert with Dr. Jane. In agreement with the documented findings as noted in the resident documentation with any exceptions or additions as noted here. resting comfortably in bed with ongoing mild nonproductive cough c/w admission. On examination, S1/S2 nl RRR no MCG. CTAB. Abd NT/ND BS+ve Pulmonary embolism, provoked following long car ride - transitioned to DOAC and tolerating without adverse effect. 3 month course recommended. TTE and labs as noted. Follow up with PCP. Else see resident documentation as noted. Total attending physician time spent with this patient's care on the day of discharge: 35 minutes. Resident Activity Tracking Resident Involvement: Resident Care Provided Care Provided: Adult [facility]
--- NOTE | 2022-08-19 17:01 | Communication Note ---
Date of Service: August 19, 2022 By CMS guidelines, a determination that the admission or continued stay is not medically necessary has been made by a member of the UR committee and a physic mary for this hospital stay, therefore a Code 44 will be completed and the Inpatient admission will be changed to outpatient. Claudia Holden M.D.
--- NOTE | 2022-08-20 08:10 | Coding Query ---
To promote full compliance with coding requirements relating to patient care, provider participation is requested in all cases of cement car dumper uncertainty. Please assist us with the question(s) below: Coding Question(s): The diagnosis below was documented in the H&P, then subsequently fell off all further documentation on the Discharge Summary. Please indicate if it is still a possible diagnosis or ruled out. Physician's Response(s): ACUTE RESPIRATORY FAILURE ( ) Diagnosed ( x ) Ruled out ( ) Other (please specify) MTDD
[2022-08-23 23:22] LABS: Factor 5 Mutation NEGATIVE
[2022-08-23 23:33] LABS: Anti-Thrombin III Activity 89 % normal (80-135); Protein S Functional(Activity) 82 % normal (70-150)
[2022-08-26 00:18] LABS: PTT LA Screen 37 sec (<=40)
== END 2022-08-19 18:21 | disposition home or self-care (01) | DRG 176 ==
LOC: ED 14:39 → SUATTDRO 16:27 → 2S 16:27

== ENCOUNTER 2023-01-31 08:36 | Inpatient (IN) ==
[2023-01-31] MEDS ORDERED: SODIUM CHLORIDE 0.9% 500 ML IV ONE (09:05)
[2023-01-31] MEDS ORDERED: MoRPHine SULFATE 4 MG/ML 1 ML CARP\\VIAL IV STA (09:06)
[2023-01-31] MEDS ORDERED: ONDANSETRON INJ 2 MG/ML 2 ML VIAL IV STA (09:06)
--- NOTE | 2023-01-31 09:08 | Emergency Department Note ---
Impression & Plan Abdominal pain ADMIT ED Provider Note HPI: History obtained from patient. The patient is a 67-year-old gentleman with history of pulmonary embolism, currently on Eliquis, presents emergency department with a chief complaint of abdominal pain and epigastric pain. Patient states that at approximately 3:30 in the morning he developed a sensation of mid abdominal pain and epigastric pain. Patient states this pain has been relatively constant since then. Patient states he has had some nausea but denies any vomiting. Patient denies any shortness of breath. On arrival here to the ED the patient is mildly hypertensive at 162/79, he is otherwise hemodynamically stable, saturating well on room air and is otherwise in no acute distress on my initial assessment. ROS: - Per HPI Differential Diagnosis: Acute gastritis, acute pancreatitis, acute cholecyst itis, choledocholithiasis, esophagitis, acute coronary syndrome, pulmonary embolism, amongst other potential pathologies. *Outpatient medications and allergy history reviewed. *Pertinent external medical records reviewed PE: General: Alert HEENT: Normocephalic, trachea midline Eyes: Extraocular eye movement is intact, no scleral erythema Pulmonary: Clear to auscultation bilaterally, no wheezing Cardio: Regular rate and rhythm GI: Abdomen is soft to palpation, moderate tenderness over the mid abdomen and epigastric area with palpation : No suprapubic tenderness MSK: No evidence of trauma or malformation of the extremities, no edema Skin: No evidence of rash Neuro: Alert, no focal deficits Psychiatric: Cooperative INDEPENDENT INTERPRETATIONS: patient monitor: (As interpreted by myself): - An order was placed for continuous cardiac monitoring - Patient was noted to be in sinus rhythm with a rate of 58 EKG: (As interpreted by myself): Rate: 52 Rhythm: Sinus bradycardia Intervals: Within normal limits ST changes: No ST elevation Time: 0846 Interventions provided in ED: -IV morphine, IV Zofran, IV fluid bolus Medical Decision Making: IV was established and lab work obtained, patient was placed on case monitor. Patient was given IV morphine and IV Zofran for his symptoms. Lab work shows no leukocytosis, hemoglobin is normal, platelet count is normal, CMP shows a mild transaminitis with AST of 165 and ALT of 107, bilirubin is 2.1. CT imaging of the abdomen pelvis was obtained that shows some nonspecific gallbladder wall thickening. Troponin is negative, EKG per my interpretation shows sinus rhythm without any acute ischemic changes. Doubt ACS. I do suspect the patient's pain is likely biliary in nature, I discussed the above findings with on-call general surgery, Dr. Kolb, who recommended admission to the medicine service for further work-up and GI consultation and likely MRCP, he is in agreement for routine consultation. Patient is in agreement to this plan, case was discussed with the on-call hospitalist for [facility], Dr. Han, and the patient was placed for admission in stable condition. Consultants/Discussions held with other healthcare providers: -General surgery, Dr. Kolb -Hospitalist, Dr. Han Disposition discussion held by myself with: -Patient Diagnosis: 1. Abdominal pain, acute 2. Transaminitis, acute 3. Elevated bilirubin, acute 4. Nausea, acute Disposition: Admission Dave Mitchell DO Emergency Medicine Past Med/Surg History Medical History (Updated 01/31/23 @ 11:51 by Caleb Cohen PA-C) BPH (benign prostatic hyperplasia) History of pulmonary embolus (PE) Recurrent bacterial cystitis Surgical History H/O hernia repair 1963 History of root canal procedure 1988 Social History Smoking Status: Never smoker Do You Dip or Chew Tobacco: No; Hx Alcohol Use: No Hx Substance Use: No Preferred Language: Bulgarian Communication Ability: Effective Construction Project Administrator Required: No Beliefs That Will Affect Care: None marital status: Current Living Situation: Spouse current occupational status: employed current occupation: Banker Feels Safe at Home: Yes Diet: regular Assistive Devices: None Allergies Allergies Allergy/AdvReac Type Severity Reaction Status Date / Time amoxicillin Allergy Severe Hives Unverified 08/10/22 18:47 Home Meds Home Medications Medication Instructions Recorded Confirmed cholecalciferol (vitamin D3) 25 25 mcg PO DAILY 02/27/21 01/31/23 mcg (1,000 unit) tablet (Vitamin D3) tamsulosin 0.4 mg capsule (Flomax) 0.4 mg PO DAILY 02/27/21 01/31/23 zinc 50 mg tablet 50 mg PO DAILY 02/27/21 01/31/23 Previous Rx's Medication Instructions Recorded apixaban 5 mg (74 tabs) tablets in 5 mg PO BID #74 ea 08/19/22 a dose pack (Eliquis) Results & Data (ED) Vital Signs Vital Signs - 24 hr 01/31/23 08:41 01/31/23 08:55 01/31/23 10:46 Temperature 36.6 C Temperature Source Temporal Artery Scan Pulse Rate 62 61 Pulse Rate [Apical] Respiratory Rate 18 Respiratory Effort / Characteristics Respiratory Depth Blood Pressure 162/79 H Blood Pressure [Right Arm] Blood Pressure Mean 106 Blood Pressure Mean [Right Arm] Pulse Oximetry 94 Oxygen Delivery Method Room Air Room Air Sepsis Recent Fever Within 48 Hours No Sepsis New/Unexplained Change in Mental Status No Sepsis Action Taken by Nursing No Action Required 01/31/23 10:46 01/31/23 10:46 Temperature Temperature Source Pulse Rate Pulse Rate [Apical] 66 Respiratory Rate 20 Respiratory Effort / Characteristics Non-Labored Respiratory Depth Normal Blood Pressure Blood Pressure [Right Arm] 162/76 H Blood Pressure Mean Blood Pressure Mean [Right Arm] 104 Pulse Oximetry 96 96 Oxygen Delivery Method Room Air Room Air Sepsis Recent Fever Within 48 Hours Sepsis New/Unexplained Change in Mental Status Sepsis Action Taken by Nursing Laboratory Data 01/31/23 09:04 01/31/23 09:04 Lab Results 01/31/23 01/31/23 01/31/23 Range/Units 09:04 09:04 09:04 WBC 7.66 (4.8-10.8) K/ul RBC 5.14 (4.70-6.10) M/uL Hgb 15.4 (14.0-18.0) g/dl Hct 45.0 (42.0-52.0) % MCV 87.5 (80.0-100.0) fL MCH 30.0 (25.0-34.0) pg MCHC 34.2 (32.0-36.0) g/dL RDW Std Deviation 42.0 (36.4-46.3) fL RDW Coeff of Louie 13.1 (11.5-14.5) % Plt Count 169 (130-400) K/uL MPV 10.0 (9.4-12.4) fL Immature Gran % (Auto) 0.3 % Neut % (Auto) 88.7 % Lymph % (Auto) 9.0 % [place] % (Auto) 1.8 % Eos % (Auto) 0.1 % Baso % (Auto) 0.1 % Neut # (Auto) 6.79 H (1.40-6.50) K/uL Lymph # (Auto) 0.69 L (1.20-3.40) K/uL [place] # (Auto) 0.14 (0.11-0.59) K/uL Eos # (Auto) 0.01 (0.00-0.50) K/uL Baso # (Auto) 0.01 (0.00-0.20) K/uL Immature Gran # (Auto) 0.02 (0.01-0.20) K/uL PT 11.8 (9.0-12.0) Seconds INR 1.1 (0.9-1.1) Sodium 138 (136-145) mmol/L Potassium 4.2 (3.5-5.1) mmol/L Chloride 101 (98-107) mmol/L Carbon Dioxide 30 (21-32) mmol/L Anion Gap 7 (3-11) BUN 19 (6-23) mg/dl Creatinine 1.16 (0.6-1.4) mg/dl Est Cr Clr Drug Dosing 75.0 ml/min Est GFR ( Amer) 74.1 ml/min Est GFR (Non-Af Amer) 63.9 ml/min BUN/Creatinine Ratio 16.4 (10-20) Glucose 188 H (70-99(Fasting)) mg/dl Calcium 9.7 (8.6-10.3) mg/dl Total Bilirubin 2.1 H (0.2-1.0) mg/dl AST 165 H (13-39) U/L ALT 107 H (7-52) U/L Alkaline Phosphatase 70 (34-104) U/L Troponin I High Sens 4.1 (0-20) pg/ml Total Protein 7.6 (6.0-8.3) gm/dl Albumin 4.6 (3.4-5.0) gm/dl Globulin 3.0 (2.5-4.0) gm/dl Albumin/Globulin Ratio 1.5 (0.9-2) Lipase 15 (11-82) U/L Administered Medications Discontinued Medications Sodium Chloride (Nss) 500 mls @ 999 mls/hr IV .Q31M ONE Stop: 01/31/23 09:35 Last Infusion: 01/31/23 09:54 Dose: 0 mls/hr Documented By: Admin: 01/31/23 09:21 Dose: 999 mls/hr Documented By: MESFIN Ioversol (Optiray 320 100ml) 91 ml IV ONCE ONE Stop: 01/31/23 10:03 Last Admin: 01/31/23 10:02 Dose: 91 ml Documented By: MANDEEP Morphine Sulfate (Morphine Sulfate 4 Mg/Ml 1 Ml Carp\Vial) 4 mg IV NOW STA Stop: 01/31/23 09:07 Last Admin: 01/31/23 09:20 Dose: 4 mg Documented By: MESFIN Ondansetron HCl (Ondansetron Inj 2 Mg/Ml 2 Ml Vial) 4 mg IV NOW STA Stop: 01/31/23 09:07 Last Admin: 01/31/23 09:20 Dose: 4 mg Documented By: MESFIN Imaging Data Radiologist's Impression: Chest X-Ray 01/31/23 08:49 XR chest 1V portable HISTORY: 67 years-old Male Chest pain, nonspecific COMPARISON: 08/18/2022 TECHNIQUE: AP view of the chest FINDINGS: Cardiac silhouette is mildly enlarged. No pneumothorax, pleural effusion or airspace consolidation. Mild left basilar atelectasis. Bones appear grossly intact. IMPRESSION: No acute process. ACT 112: Negative or not required by law. The above report was generated using voice recognition software. It may contain grammatical, syntax or spelling errors. Electronically signed by: Ian Tilley M.D. 01/31/2023 9:48 AM Abdomen/Pelvis CT 01/31/23 09:[address] WITH IV CONTRAST CT DOSE: 1549.61 mGy.cm HISTORY: Acute epigastric abdominal pain Mid abdominal and epigastric pain TECHNIQUE: Multiaxial CT images of the abdomen and pelvis were performed following the IV administration of Optiray, A dose lowering technique was utilized adhering to the principles of ALARA. COMPARISON STUDY: 12/04/2020 FINDINGS: Mild cardiomegaly. Left hemidiaphragmatic elevation with mild bibasilar atelectasis. No free air. Unremarkable spleen, and pancreas. Mild adrenal gland thickening noted bilaterally suggestive of hyperplasia. Clinical gallbladder wall thickening. 10 mm left hepatic lobe cyst. The liver is otherwise unremarkable. Patency of the hepatic and portal veins. 2.1 cm cyst of the superior pole left kidney. Several scattered subcentimeter hypodensities of the kidneys are too small to characterize, likely additional cysts. There is no hydronephrosis. Prostatomegaly. Urinary bladder wall thickening with partial distention. Unremarkable abdominal aorta with mild atherosclerosis. No lymphadenopathy. Mildly distended fluid-filled stomach. Small duodenal diverticulum. No bowel obstruction or bowel wall thickening. No free fluid or mesenteric inflammation. Colonic diverticulosis. Normal appendix. Tiny fat filled umbilical hernia. Unremarkable soft tissues. No acute fracture. IMPRESSION: 1. Equivocal gallbladder wall thickening. Correlation with right upper quadrant ultrasound recommended. 2. No bowel obstruction or bowel wall thickening. 3. Colonic diverticulosis. 4. Additional findings as above. ACT 112: Negative or not required by law. The above report was generated using voice recognition software. It may contain grammatical, syntax or spelling errors. Electronically signed by: Ian Tilley M.D. 01/31/2023 10:16 AM Discharge Plan Visit Data Chief Complaint: Chest Pain Stated Complaint: PAIN IN CHEST, DISCOMFORT ED Provider: Dave Mitchell Discharge Problem: Abdominal pain Forms Stand Alone Forms: [facility] [employer] Prescriptions Prescriptions: No Action Eliquis 5 mg (74 tabs) tablets,dose pack 5 mg PO BID Qty: 74 0RF tamsulosin [Flomax] 0.4 mg capsule 0.4 mg PO DAILY zinc 50 mg Tablet 50 mg PO DAILY cholecalciferol (vitamin D3) [Vitamin D3] 25 mcg (1,000 unit) Tablet 25 mcg PO DAILY Referrals Referrals: Dave Mary MD [Primary Care Provider] -
[2023-01-31 09:27] LABS: Basophils # (auto) 0.01 K/uL (0.00-0.20); Basophils % (auto) 0.1 %; Eosinophils # (auto) 0.01 K/uL (0.00-0.50); Eosinophils % (auto) 0.1 %; Hemoglobin 15.4 g/dl (14.0-18.0); Immature Granulocytes # (auto) 0.02 K/uL (0.01-0.20); Immature Granulocytes % (auto) 0.3 %; Lymphocytes # (auto) 0.69 K/uL (1.20-3.40); Mean Corpuscular Hgb Conc 34.2 g/dL (32.0-36.0); Mean Corpuscular Volume 87.5 fL (80.0-100.0); Monocytes # (auto) 0.14 K/uL (0.11-0.59); Monocytes % (auto) 1.8 %; Neutrophils # (auto) 6.79 K/uL (1.40-6.50); Neutrophils % (auto) 88.7 %; Platelet Count 169 K/uL (130-400); RDW Coefficient of Variation 13.1 % (11.5-14.5); Red Blood Count 5.14 M/uL (4.70-6.10); White Blood Count 7.66 K/ul (4.8-10.8)
[2023-01-31 09:43] LABS: Albumin Globulin Ratio 1.5 (0.9-2); Albumin Level 4.6 gm/dl (3.4-5.0); BUN Creatinine Ratio 16.4 (10-20); Bilirubin,Total 2.1 mg/dl (0.2-1.0); Calcium 9.7 mg/dl (8.6-10.3); Est GFR (African American) 74.1 ml/min; Est GFR (Non-African American) 63.9 ml/min; Potassium 4.2 mmol/L (3.5-5.1); Total Protein 7.6 gm/dl (6.0-8.3)
--- NOTE | 2023-01-31 09:49 | XRay Report ---
XR chest 1V portable HISTORY: 67 years-old Male Chest pain, nonspecific COMPARISON: 08/18/2022 TECHNIQUE: AP view of the chest FINDINGS: Cardiac silhouette is mildly enlarged. No pneumothorax, pleural effusion or airspace consolidation. M ild left basilar atelectasis. Bones appear grossly intact. IMPRESSION: No acute process. ACT 112: Negative or not required by law. The above report was generated using voice recognition software. It may contain grammatical, syntax o r spelling errors. Electronically signed by: Ian Tilley M.D. 01/31/2023 9:48 AM
[2023-01-31 09:50] LABS: Troponin I High Sensitivity 4.1 pg/ml (0-20)
[2023-01-31] MEDS ORDERED: OPTIRAY 320 100ml IV ONE (10:02)
--- NOTE | 2023-01-31 10:18 | CT Scan Report ---
ABDOMEN AND PELVIS CT WITH IV CONTRAST CT DOSE: 1549.61 mGy.cm HISTORY: Acute epigastric abdominal pain Mid abdominal and epigastric pain TECHNIQUE: Multiaxial CT images of the abdomen and pelvis were performed following the IV administrat ion of Optiray, A dose lowering technique was utilized adhering to the principles of ALARA. COMPARISON STUDY: 12/04/2020 FINDINGS: Mild cardiomegaly. Left hemidiaphragmatic elevation with mild bibasilar atelectasis. No vitaliy e air. Unremarkable spleen, and pancreas. Mild adrenal gland thickening noted bilaterally suggestive of hyperplasia. Clinical gallbladder wall thickening. 10 mm left hepatic lobe cyst. The liver is othe rwise unremarkable. Patency of the hepatic and portal veins. 2.1 cm cyst of the superior pole left kidney. Several scattered subcentimeter hypodensities of the ki dneys are too small to characterize, likely additional cysts. There is no hydronephrosis. Prostatomeg miki. Urinary bladder wall thickening with partial distention. Unremarkable abdominal aorta with mild atherosclerosis. No lymphadenopathy. Mildly distended fluid-filled stomach. Small duodenal diverticulum. No bowel obstruction or bowel wal l thickening. No free fluid or mesenteric inflammation. Colonic diverticulosis. Normal appendix. Tiny fat filled umbilical hernia. Unremarkable soft tissues. No acute fracture. IMPRESSION: 1. Equivocal gallbladder wall thickening. Correlation with right upper quadrant ultrasound recommende d. 2. No bowel obstruction or bowel wall thickening. 3. Colonic diverticulosis. 4. Additional findings as above. ACT 112: Negative or not required by law. The above report was generated using voice recognition software. It may contain grammatical, syntax o r spelling errors. Electronically signed by: Ian Tilley M.D. 01/31/2023 10:16 AM
[2023-01-31 11:03] LABS: INR 1.1 (0.9-1.1); Prothrombin Time 11.8 Seconds (9.0-12.0)
--- NOTE | 2023-01-31 11:16 | History & Physical Report ---
Date of Service January 31, 2023 Assessment & Plan (1) Epigastric pain: Plan: Started at 0330 morning of 01/31 Pain eventually became generalized abdominal pain EKG showed sinus bradycardia at 52 bpm with occasional PVCs; no ischemic changes Troponin WNL at 4.[address] abdomen/pelvis showed equivocal gallbladder wall thickening Patient denies CP at rest, and reports no CP or dyspnea on exertion; pain lasted >30min with negative troponin No cardiac hx; suspect gallbladder / abdominal involvement despite coming in as chest pain r/o ED spoke to general surgery (Dr. Kolb) who will see the patient tomorrow 02/01 Appreciate GI consult MRCP ordered Metronidazole 500 mg IV every 8 hours Ceftriaxone 2 g IV once daily (3rd gen ceph chosen based on pt PCN allergy) Famotidine 20mg IV twice daily Acetaminophen as needed for pain; Dilaudid as needed for breakthrough pain A.m. CBC, BMP, LFTs, Mag (2) History of pulmonary embolus (PE): Plan: August 2022 at [facility] Patient reports compliance with Eliquis 5 mg twice daily Last taken at 1915 on 01/30 Hold Eliquis until patient is seen by GI/general surgery D-dimer pending to help determine outpatient anticoag upon discharge Heparin 5000u q8h perioperatively (3) Elevated transaminase level: Plan: Total bili 2.1, AST 165, ALT 107, alk phos WNL Continue to monitor with LFTs (4) BPH (benign prostatic hyperplasia): Plan: Continue tamsulosin Plan Disposition: Obs - admit to [facility] with telemetry Full code Clear liquid diet, then n.p.o. at midnight VTE PPx: Hold Eliquis for now; heparin 5000u q8h History of Present Illness Chief Complaint: Epigastric pain Primary Care Provider: Dave Mary MD Keegan is a 67-year-old male with PMH of obesity, vitamin D deficiency, PE, and BPH. Patient presented with epigastric pain that woke him from sleep at 0330 this morning. He describes it as "constant, sharp" and rated the pain 8/10 at its worst. Pain radiated from the epigastric region to become more generalized abdominal; per patient, radiates from sternum to umbilicus. He has never had an experience like this before. He did not take any medication before arriving in the ED. Patient reports he was squirming around in bed trying to get comfortable, but turning and laying in different positions did not alleviate the pain. Per , patient was also burping a lot this morning, and may have eaten a bad salad last night. No recent changes in diet. Patient denies scapular pain after fatty meals. Patient did not take his morning medications or eat anything this morning. Hx of PE in 09/2022 (on Eliquis). Last took Eliquis at 1915 on 01/30. Hypertensive at 162/79 on arrival; vitals are otherwise hemodynamically stable. ED course: IVF, Zofran, and morphine 4 mg IV ROS: Patient denies fever, LA, lightheadedness, dizziness, CP, pleuritic CP, SOB, cough, hemopytsis, urinary s/s, burning with urination, blood in the urine/stool, or numbness/tingling down arms or legs. Patient endorses chills, sweating, and nausea this morning (resolved). No abdominal pain after receiving morphine in the ED. No PMHx of MN, cancer, diabetes. Surgical hx: Hernia repair as a child in second grade; otherwise, no past abdominal surgeries. No hx of appendicitis. Allergies Allergy/AdvReac Type Severity Reaction Status Date / Time amoxicillin Allergy Severe Hives Unverified 01/31/23 12:15 Home Medications Medication Instructions Recorded Confirmed Type cholecalciferol (vitamin D3) 25 25 mcg PO DAILY 02/27/21 01/31/23 History mcg (1,000 unit) tablet (Vitamin D3) tamsulosin 0.4 mg capsule (Flomax) 0.4 mg PO DAILY 02/27/21 01/31/23 History zinc 50 mg tablet 50 mg PO DAILY 02/27/21 01/31/23 History apixaban 5 mg (74 tabs) tablets in 5 mg PO BID #74 ea 08/19/22 01/31/23 Rx a dose pack (Eliquis) Past Med/Surg History Medical History (Updated 01/31/23 @ 11:51 by Caleb Cohen PA-C) BPH (benign prostatic hyperplasia) History of pulmonary embolus (PE) Recurrent bacterial cystitis Surgical History H/O hernia repair 1962 History of root canal procedure 1988 Social History Smoking Status: Never smoker Do You Dip or Chew Tobacco: No; Hx Alcohol Use: No Hx Substance Use: No Preferred Language: Maori Communication Ability: Effective Painting Supervisor Required: No Beliefs That Will Affect Care: None marital status: Current Living Situation: Spouse current occupational status: employed current occupation: Banker Feels Safe at Home: Yes Diet: regular Assistive Devices: None Review of Systems Review of Systems: See HPI above Physical Exam Physical Exam: General: no acute distress; pleasant affect; non-toxic appearing; well- nourished; cooperative HEENT: normocephalic, atraumatic; no scleral icterus; PERRLA w/ EOMs intact; moist mucus membrane; vision and hearing grossly intact Neck: supple; no lymphadenopathy; trachea midline Skin: warm, dry without signs of tenting; no cyanosis; no rashes, brusing, lesions, or erythema noted CV: chest wall NTP; RRR; S1/S2 normal; no murmurs/rubs/gallops; pulses intact and symmetric at radial, DP, and PT Lungs: no acute respiratory distress; symmetrical chest wall expansion; clear breath sounds across all lung guerrero w/o adventitious sounds; no wheezing ABD: Soft, NTP; BS present; no rebound/guarding; no ascites; no distention; negative CVA tenderness; negative Psoas and Rovsing sign; negative McBurney point tenderness; negative McMurphy sign MSK: no tics or fasciculations; +1 pitting edema around the ankles B/L Neuro: A&Ox3; normal mood and affect; fluent speech; no focal deficits; sensation grossly intact Results & Data Results & Data Vital Signs (Past 12 Hours) Vital Signs Temp Pulse Pulse Resp BP BP Pulse Ox 01/31/23 10:46 96 01/31/23 10:46 66 20 162/76 H 96 01/31/23 10:46 01/31/23 08:55 61 01/31/23 08:41 36.6 C 62 18 162/79 H 94 O2 Del Method 01/31/23 10:46 Room Air 01/31/23 10:46 Room Air 01/31/23 10:46 Room Air 01/31/23 08:55 01/31/23 08:41 Room Air Laboratory Results Abnormal lab results 01/31/23 01/31/23 Range/Units 09:04 09:04 Neut # (Auto) 6.79 H (1.40-6.50) K/uL Lymph # (Auto) 0.69 L (1.20-3.40) K/uL Glucose 188 H (70-99(Fasting)) mg/dl Total Bilirubin 2.1 H (0.2-1.0) mg/dl AST 165 H (13-39) U/L ALT 107 H (7-52) U/L Diagnostic Findings Chest X-Ray 01/31/23 08:49 XR chest 1V portable HISTORY: 67 years-old Male Chest pain, nonspecific COMPARISON: 08/18/2022 TECHNIQUE: AP view of the chest FINDINGS: Cardiac silhouette is mildly enlarged. No pneumothorax, pleural effusion or airspace consolidation. Mild left basilar atelectasis. Bones appear grossly intact. IMPRESSION: No acute process. ACT 112: Negative or not required by law. The above report was generated using voice recognition software. It may contain grammatical, syntax or spelling errors. Electronically signed by: Ian Tilley M.D. 01/31/2023 9:48 AM Abdomen/Pelvis CT 01/31/23 09:[address] WITH IV CONTRAST CT DOSE: 1549.61 mGy.cm HISTORY: Acute epigastric abdominal pain Mid abdominal and epigastric pain TECHNIQUE: Multiaxial CT images of the abdomen and pelvis were performed following the IV administration of Optiray, A dose lowering technique was utilized adhering to the principles of ALARA. COMPARISON STUDY: 12/04/2020 FINDINGS: Mild cardiomegaly. Left hemidiaphragmatic elevation with mild bibasilar atelectasis. No free air. Unremarkable spleen, and pancreas. Mild adrenal gland thickening noted bilaterally suggestive of hyperplasia. Clinical gallbladder wall thickening. 10 mm left hepatic lobe cyst. The liver is otherwise unremarkable. Patency of the hepatic and portal veins. 2.1 cm cyst of the superior pole left kidney. Several scattered subcentimeter hypodensities of the kidneys are too small to characterize, likely additional cysts. There is no hydronephrosis. Prostatomegaly. Urinary bladder wall thickening with partial distention. Unremarkable abdominal aorta with mild atherosclerosis. No lymphadenopathy. Mildly distended fluid-filled stomach. Small duodenal diverticulum. No bowel obstruction or bowel wall thickening. No free fluid or mesenteric inflammation. Colonic diverticulosis. Normal appendix. Tiny fat filled umbilical hernia. Unremarkable soft tissues. No acute fracture. IMPRESSION: 1. Equivocal gallbladder wall thickening. Correlation with right upper quadrant ultrasound recommended. 2. No bowel obstruction or bowel wall thickening. 3. Colonic diverticulosis. 4. Additional findings as above. ACT 112: Negative or not required by law. The above report was generated using voice recognition software. It may contain grammatical, syntax or spelling errors. Electronically signed by: Ian Tilley M.D. 01/31/2023 10:16 AM Code Status & VTE Plan Code Status Full code VTE Prophylaxis Plan VTE Prophylaxis will be ordered: Yes Supervising Physician Co-Signing Physician Notes Patient seen and examined, chart reviewed, case discussed with Caleb Cohen PA-C and I agree with the assessment and plan as above except as otherwise noted Labs and images reviewed 67-year-old male with past medical history of bilat PE 08/2022, BPH with LUTS who presents with epigastric pain with a constant sharp quality up to 8/10 with radiation into the sternum and lower abdomen. No radiation to the shoulder. No shortness of breath. He did think he had some sweating this morning. patient has had constant pain for greater than 30 minutes with a nonischemic EKG and no troponin elevation. On exam at the bedside patient had just received morphine and is pain-free, does not have abdominal tenderness/rebound/guarding. Lungs are clear, heart rate is regular. No chest wall tenderness to palpation. Total bilirubin is elevated, has a transaminitis and CT shows equivocal gallbladder wall thickening overall picture suspicious for cholecystitis. No stones or CBD dilation noted, initially pending ultrasound for further qualification. Case reviewed by surgery was recommended for medical admission with MRCP, GI adjunct consult if stones are identified. WIll abdmit on abx, MCRP pending. Patient has a history of bilateral PE 08/2022. He has been on continuous DOAC treatment for more than 3 months. He was pending an outpatient D-dimer from his PCP with the intention to discontinue Eliquis if the D-dimer returned negative. We will obtain this while inpatient, if this is negative given his risk and history of clot continue perioperative DVT prophylaxis, use a postoperative prophylactic dose of Eliquis, and then discontinue after 30 days with follow-up to PCP. If dimer is still positive resume Eliquis treatment dose postoperatively. PG Care Time/CCT Total # of Minutes Spent Total Time Spent with Patient: Total time spent is greater than 50% in coordination of care (as documented) at patient's floor/unit and/or counseling patient: C[place] [address] INT INP/OBS CARE 2/55MIN Patient Type Established Medical Decision Making Moderate Complexity Diagnoses Epigastric pain R10.13 History of pulmonary embolus (PE) Z86.711 Elevated transaminase level R74.01 BPH (benign prostatic hyperplasia) N40.0
[2023-01-31] MEDS ORDERED: HYDROmorphone INJ 0.5 MG/0.5 ML SYR IV PRN (13:00)
[2023-01-31] MEDS ORDERED: ACETAMINOPHEN 325 MG TAB PO PRN (13:00)
[2023-01-31] MEDS ORDERED: metroNIDAZOLE 500 MG/100 ML BAG IV STA (13:04)
[2023-01-31 13:11] LABS: D Dimer 440 ug/L FEU (0-500)
[2023-01-31] MEDS ORDERED: cefTRIAXone SODIUM 2,000 MG/50 ML BAG IV ONE (13:15)
--- NOTE | 2023-01-31 14:10 | Magnetic Resonance Report ---
MR MRCP HISTORY: 67 years-old Male Gallbladder r/o acute upper abdominal pain COMPARISON: CT of same day TECHNIQUE: MRCP without the use of IV contrast was obtained FINDINGS: No acute process of the imaged lower chest. Unremarkable spleen, pancreas, adrenal glands and liver. The study is motion degraded. Mildly distended gallbladder with cholelithiasis. No bladder wall thick ening, or pericholecystic fluid. Normal diameter of the common bile duct measuring 5 mm. No choledoch olithiasis or pancreatic divisum. Mild nonspecific bilateral perinephric stranding. 2.4 cm cyst of the interpolar left kidney. No hydro nephrosis. Unremarkable aorta and IVC. No bowel obstruction or bowel wall thickening. Moderate fecal retention in the right hemicolon. IMPRESSION: 1. Cholelithiasis without evidence of acute cholecystitis. 2. No biliary duct dilation or choledocholithiasis. ACT 112: Negative or not required by law. The above report was generated using voice recognition software. It may contain grammatical, syntax o r spelling errors. Electronically signed by: Ian Tilley M.D. 01/31/2023 2:08 PM
[2023-01-31] MEDS: HEPARIN SOD 5,000 UNIT/0.5 ML VIAL SQ SCH ×2 (17:29→21:30)
[2023-01-31] MEDS: metroNIDAZOLE 500 MG/100 ML BAG IV SCH (19:51)
[2023-01-31] MEDS ORDERED: FAMOTIDINE 20 MG TAB PO SCH (21:00)
[2023-01-31] MEDS: FAMOTIDINE 20 MG in SYRINGE 3 ML IV SCH (21:29)
[2023-02-01] MEDS ORDERED: PLASMA-LYTE A 1,000 ML IV SCH
[2023-02-01] MEDS: metroNIDAZOLE 500 MG/100 ML BAG IV SCH ×3 (04:52→20:17)
[2023-02-01] MEDS: HEPARIN SOD 5,000 UNIT/0.5 ML VIAL SQ SCH ×3 (04:52→20:17)
[2023-02-01 06:28] LABS: Basophils # (auto) 0.01 K/uL (0.00-0.20); Basophils % (auto) 0.2 %; Eosinophils # (auto) 0.08 K/uL (0.00-0.50); Eosinophils % (auto) 1.2 %; Hematocrit (blood only) 40.5 % (42.0-52.0); Hemoglobin 13.9 g/dl (14.0-18.0); Immature Granulocytes # (auto) 0.02 K/uL (0.01-0.20); Immature Granulocytes % (auto) 0.3 %; Lymphocytes # (auto) 1.24 K/uL (1.20-3.40); Lymphocytes % (auto) 19.2 %; Mean Corpuscular Hgb Conc 34.3 g/dL (32.0-36.0); Mean Corpuscular Volume 87.5 fL (80.0-100.0); Mean Platelet Volume 10.2 fL (9.4-12.4); Monocytes # (auto) 0.49 K/uL (0.11-0.59); Monocytes % (auto) 7.6 %; Neutrophils # (auto) 4.61 K/uL (1.40-6.50); Neutrophils % (auto) 71.5 %; Platelet Count 159 K/uL (130-400); RDW Coefficient of Variation 13.5 % (11.5-14.5); RDW Standard Deviation 43.1 fL (36.4-46.3); Red Blood Count 4.63 M/uL (4.70-6.10); White Blood Count 6.45 K/ul (4.8-10.8)
[2023-02-01 06:43] LABS: Albumin Level 3.8 gm/dl (3.4-5.0); BUN Creatinine Ratio 12.5 (10-20); Bilirubin Direct 1.5 mg/dl (0-0.2); Bilirubin,Total 2.9 mg/dl (0.2-1.0); Calcium 8.8 mg/dl (8.6-10.3); Creatinine Clr Calc Pharmacy 77.6 ml/min; Est GFR (African American) 77.3 ml/min; Est GFR (Non-African American) 66.7 ml/min; Magnesium 2.1 mg/dl (1.7-2.4); Potassium 4.1 mmol/L (3.5-5.1); Total Protein 6.3 gm/dl (6.0-8.3)
[2023-02-01] MEDS: HYDROmorphone INJ 1 MG/ML SYRINGE IV PRN (07:27)
[2023-02-01] MEDS ORDERED: SODIUM CHLORIDE 0.9% 1,000 ML IV SCH (08:00)
[2023-02-01] MEDS: TAMSULOSIN HCL 0.4 MG CAP PO SCH (08:52)
[2023-02-01] MEDS: ZINC SULFATE 220 MG CAPSULE PO SCH (08:52)
--- NOTE | 2023-02-01 09:11 | Surgery Consultation ---
Date of Consultation February 01, 2023 Assessment & Plan (1) Gallstones: No evidence of acute cholecystitis. He has a normal white blood cell count and MRCP failed to show cholecystitis. The MRCP also failed to show choledocholithiasis although his LFTs are all rising including his total bilirubin and direct bilirubin. We will wait for GI to evaluate. Suspect they will want to perform an ERCP. We will also obtain a CT scan of the chest to evaluate his pulmonary emboli. If these are resolved will consider elective cholecystectomy during this hospitalization. Keep n.p.o. until GI sees him and continue to hold Eliquis. We will continue to follow closely (2) Elevated LFTs: History of Present Illness Attending Physician: Rick Chan MD History of Present Illness Patient seen. Feeling okay at the moment but does have waves of pain from his epigastrium into his right upper quadrant. They are rather severe at times. Allergies Allergy/AdvReac Type Severity Reaction Status Date / Time amoxicillin Allergy Severe Hives Unverified 01/31/23 12:15 Home Medications Medication Instructions Recorded Confirmed Type cholecalciferol (vitamin D3) 25 25 mcg PO DAILY 02/27/21 01/31/23 History mcg (1,000 unit) tablet (Vitamin D3) tamsulosin 0.4 mg capsule (Flomax) 0.4 mg PO DAILY 02/27/21 01/31/23 History zinc 50 mg tablet 50 mg PO DAILY 02/27/21 01/31/23 History apixaban 5 mg (74 tabs) tablets in 5 mg PO BID #74 ea 08/19/22 01/31/23 Rx a dose pack (Eliquis) cyanocobalamin (vitamin B-12) 1,000 mcg PO DAILY 01/31/23 01/31/23 History 1,000 mcg tablet (Vitamin B-12) Patient History Medical History (Updated 02/01/23 @ 09:10 by Scott Kolb DO) BPH (benign prostatic hyperplasia) History of pulmonary embolus (PE) Recurrent bacterial cystitis Surgical History H/O hernia repair 1963 History of root canal procedure 1988 Social History Smoking Status: Never smoker Do You Dip or Chew Tobacco: No; Hx Alcohol Use: No Hx Substance Use: No Preferred Language: Bulgarian Communication Ability: Effective Machinist Supervisor Outside Required: No Beliefs That Will Affect Care: None marital status: Current Living Situation: Spouse Current Living Situation Comment: at home current occupational status: employed current occupation: Banker Feels Safe at Home: Yes Diet: regular Assistive Devices: Glasses Physical Exam Constitutional: WD/WN, vitals as above no acute distress and not ill appearing Eyes: PERRL, conjunctivae normal, anicteric sclerae EOM intact bilaterally ENMT: external ear and nose normal, oropharynx normal Ears: no hearing impairment Neck: trachea midline, no thyromegaly Respiratory: normal respiratory effort; no respiratory distress and does not use accessory muscles Cardiovascular: Rate/Rhythm: regular rate and regular rhythm Gastrointestinal (Abdomen): normal bowel sounds, soft, nontender, no hepatosplenomegaly Skin: no rashes, warm and dry Psychiatric: Orientation: alert, oriented x 3 and cooperative Results & Data Vital Signs (Past 12 Hours) Vital Signs Temp Pulse Pulse Resp BP BP Pulse Ox 02/01/23 08:08 78 149/82 H 02/01/23 07:22 36.8 C 58 L 18 175/76 H 95 02/01/23 06:00 54 L 02/01/23 04:00 36.7 C 55 L 18 140/77 94 01/31/23 23:00 36.6 C 52 L 18 132/76 94 01/31/23 23:25 54 L O2 Del Method 02/01/23 08:08 02/01/23 07:22 Room Air 02/01/23 06:00 02/01/23 04:00 Room Air 01/31/23 23:00 Room Air 01/31/23 23:25 PG Care Time/CCT Total # of Minutes Spent Total Time Spent with Patient: Total time spent is greater than 50% in coordination of care (as documented) at patient's floor/unit and/or counseling patient: Coding Level of Care Code 60811 IN/OBS CONSULT LVL 4,60M Diagnoses Gallstones K80.20 Elevated LFTs R79.89
[2023-02-01] MEDS: D5W AND NSS 1,000 ML IV SCH ×2 (09:22→22:17)
[2023-02-01] MEDS: FAMOTIDINE 20 MG in SYRINGE 3 ML IV SCH ×2 (09:42→20:18)
--- NOTE | 2023-02-01 09:45 | Communication Note ---
Date of Service: February 01, 2023 Patient is a 67 yo male with abdominal pain, cholelithiasis, and rising T bili. Surgery evaluated and awaiting GI decision regarding ERCP. I did inform [facility] about this patient so that further determination can be made as [facility] does not perform these biliary procedures.
[2023-02-01] MEDS ORDERED: OPTIRAY 320 100ml IV ONE (10:12)
--- NOTE | 2023-02-01 10:44 | CT Scan Report ---
CHEST CT WITH CONTRAST CT DOSE: 932.91 mGy.cm HISTORY: Follow-up pulmonary emboli. Evaluate blood clots from September (Right lung ) TECHNIQUE: Multiaxial CT images of the chest were performed following the intravenous administration of contrast. A dose lowering technique was utilized adhering to the principles of ALARA. COMPARISON: Chest CTA 08/18/2022. FINDINGS: Normal caliber thoracic aorta with no evidence for dissection. The left-sided pulmonary emb refugio seen on the prior study have essentially resolved in the interval. There are few weblike filling defects remaining within the right lower lobar pulmonary artery consistent with chronic nonocclusive emboli. This has significantly improved in the interval. No new filling defects within the pulmonary arteries to suggest an acute pulmonary embolus. No evidence for right-sided heart strain. The heart r emains mildly enlarged. Limited views the upper abdomen demonstrate normal liver liver and spleen. Th ere is an 11 mm right adrenal gland nodule. Normal left adrenal gland. Normal caliber esophagus. No p leural or pericardial effusions. No mediastinal or hilar lymphadenopathy. No acute fractures identifi ed within the chest. No pneumothorax. The central airways are patent. There are few bibasilar linear densities suggestive of scarring or subsegmental atelectasis. Otherwise, no new focal lung consolidat ions to suggest a pneumonia. Slight elevation of the left hemidiaphragm. IMPRESSION: 1. Near-complete resolution of the pulmonary emboli seen on the prior study with a few nonocclusive c hronic pulmonary emboli remaining within the right lower lobe. 2. No new filling defects within the pulmonary arteries to suggest acute pulmonary embolus. 3. Additional findings as described above. ACT 112: Negative or not required by law. Electronically signed by: Caleb Tovar M.D. 02/01/2023 10:43 AM
[2023-02-01] MEDS: cefTRIAXone SODIUM 2,000 MG in DEXTROSE 5 % MINI-B 50 ML IV SCH (11:33)
--- NOTE | 2023-02-01 11:33 | Hospitalist Progress Note ---
Date of Service February 01, 2023 Assessment & Plan (1) Epigastric pain: Plan: Cholelithiasis seen on imaging. There is a question of choledocholithiasis since LFTs and total bilirubin are rising. MRCP PE report noted. GI consultation pending to determine if ERCP is necessary. He remains on Rocephin and Flagyl, day 2 (2) History of pulmonary embolus (PE): Plan: Chest CTA done today, February 01, reveals near complete resolution of recent PEs. Collin is currently on hold. He is on subcutaneous heparin at this time (3) Elevated transaminase level: Plan: Along with elevated total bilirubin. MRCP report noted. GI consultation pending. He may need ERCP procedure done. Serial labs ordered. (4) BPH (benign prostatic hyperplasia): Plan: Stable. Continue tamsulosin Plan To be determined Admission and Anticipated Discharge Date Admission Date: January 31, 2023 Subjective Alert and oriented. No acute distress. Chest CTA reveals near complete resolution of PEs that occurred earlier this year. Surgery entry noted. They are awaiting GI input regarding possible ERCP. He has known cholelithiasis but there is a question of choledocholithiasis since LFTs and total bilirubin are rising. He remains on intravenous Rocephin and Flagyl along with IV fluids and a clear liquid diet. Luzmaquis is on hold Review of Systems Review of Systems: Constitutional-no fever or chills ENT-no blurred vision, no double vision, no epistaxis, no sore throat Respiratory-no cough, no wheezing, no shortness of breath Cardiac-no palpitations, no chest pain, no syncope GI-no nausea, vomiting, diarrhea, melena, hematochezia -no urinary retention, no urinary incontinence, no dysuria, no hematuria Musculoskeletal-no joint pain, no muscle tenderness Skin-no bruising, no rashes, no pruritus Neuro-no isolated weakness, no paresthesia, no weakness Psych-no depression, no anxiety Physical Exam Physical Exam: General-alert and oriented x3, no fevers, no chills HEENT-head atraumatic and normocephalic, pupils equal and reactive to light, extraocular muscles intact Neck-no lymphadenopathy or thyromegaly, trachea midline Chest-clear to auscultation percussion. No rales wheezing or rhonchi Cardiac-regular rate and rhythm, normal S1 and S2 Abdomen-normal bowel sounds, nontender, no hepatosplenomegaly Extremities-no cyanosis, clubbing, or edema Neuro-cranial nerves II through XII intact, motor and sensory function within normal limits, strength symmetrical, no focal deficits Psych-normal affect, normal mood Results & Data Results & Data Vital Signs (Past 12 Hours) Vital Signs Temp Pulse Pulse Resp BP BP Pulse Ox 02/01/23 08:08 78 149/82 H 02/01/23 07:22 36.8 C 58 L 18 175/76 H 95 02/01/23 06:00 54 L 02/01/23 04:00 36.7 C 55 L 18 140/77 94 O2 Del Method 02/01/23 08:08 02/01/23 07:22 Room Air 02/01/23 06:00 02/01/23 04:00 Room Air Laboratory Results 02/01/23 05:39 02/01/23 05:39 PG Care Time/CCT Total # of Minutes Spent Total Time Spent with Patient: Total time spent is greater than 50% in coordination of care (as documented) at patient's floor/unit and/or counseling patient: Coding Level of Care Code 77120 SUB INP/OBS CARE 3/50MIN Diagnoses Epigastric pain R10.13 History of pulmonary embolus (PE) Z86.711 Elevated transaminase level R74.01 BPH (benign prostatic hyperplasia) N40.0
--- NOTE | 2023-02-01 13:02 | Electrocardiogram Report ---
Test Reason : Blood Pressure : / mmHG Vent. Rate : 052 BPM Atrial Rate : 052 BPM P-R Int : 152 ms QRS Dur : 106 ms QT Int : 436 ms P-R-T Axes : 054 013 043 degrees QTc Int : 405 ms Sinus bradycardia with occasional Premature ventricular complexes Otherwise normal ECG When compared with ECG of 18-AUG-2022 15:04, Premature ventricular complexes are now Present Nonspecific T wave abnormality now evident in Inferior leads Confirmed by Tyrell Mary ([id number]) on 02/01/2023 1:02:48 PM Referred By: REFERRED SELF Confirmed By:Mitchell Mary
[2023-02-01] MEDS: LACTATED RINGER'S 1,000 ML IV SCH ×2 (13:30→16:04)
--- NOTE | 2023-02-01 13:37 | Anesthesiology Consultation ---
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 Surgery Operation Date: 02/01/23 09:30 Proposed Procedures p Endoscopic Ultrasonography Upper - Kaylyn Christopher DO Operation Date: 02/02/23 07:00 Proposed Procedures p Laparoscopic Cholecystectomy - Scott Kolb DO Height/Weight Height: 5 ft 10 in Weight: 110.7 kg Allergies Allergy/AdvReac Type Severity Reaction Status Date / Time amoxicillin Allergy Severe Hives Unverified 02/01/23 13:33 Medications Home Medications Medication Instructions Recorded Confirmed Last Taken cholecalciferol (vitamin D3) 25 25 mcg PO DAILY 02/27/21 01/31/23 08/09/22 mcg (1,000 unit) tablet (Vitamin D3) tamsulosin 0.4 mg capsule (Flomax) 0.4 mg PO DAILY 02/27/21 01/31/23 08/09/22 zinc 50 mg tablet 50 mg PO DAILY 02/27/21 01/31/23 08/09/22 apixaban 5 mg (74 tabs) tablets in 5 mg PO BID #74 ea 08/19/22 01/31/23 Unknown a dose pack ([employer]) cyanocobalamin (vitamin B-12) 1,000 mcg PO DAILY 01/31/23 01/31/23 Unknown 1,000 mcg tablet (Vitamin B-12) Active Medications Generic Name Dose Route Start Last Admin Trade Name Freq PRN Reason Stop Dose Admin Heparin Sodium (Porcine) 5,000 units 01/31/23 16:00 02/01/23 12:55 Heparin Sod 5,000 Unit/0.5 Ml Vial SQ 03/02/23 15:59 Not Given Q8 [facility] Hydromorphone HCl 1 mg 01/31/23 13:00 02/01/23 07:27 Hydromorphone Inj 1 Mg/Ml Syringe IV 02/14/23 12:59 1 mg Q4H PRN Administration Severe Pain (7,8,9,10) on NRS Metronidazole 500 mg in 100 mls @ 100 mls/hr 01/31/23 20:00 02/01/23 12:47 Flagyl IV 02/04/23 19:59 Infused Q8H [facility] Infusion Protocol Ceftriaxone Sodium 2,000 mg/ 50 mls @ 100 mls/hr 02/01/23 12:00 02/01/23 12:16 Dextrose IV 02/04/23 11:59 Infused Q24H [facility] Infusion Protocol Famotidine 20 mg/ Syringe 5 mls @ 2.5 mls/min 01/31/23 21:00 02/01/23 09:42 IV 03/02/23 20:59 2.5 mls/min BID [facility] Administration Dextrose/Sodium Chloride 1,000 mls @ 80 mls/hr 02/01/23 09:00 02/01/23 09:22 D5w And Nss IV 03/03/23 08:59 80 mls/hr .[id number] [facility] Administration Tamsulosin HCl 0.4 mg 02/01/23 09:00 02/01/23 08:52 Tamsulosin Hcl 0.4 Mg Cap PO 03/03/23 08:59 0.4 mg DAILY [facility] Administration Zinc Sulfate 220 mg 02/01/23 09:00 02/01/23 08:52 Zinc Sulfate 220 Mg Capsule PO 03/03/23 08:59 220 mg DAILY [facility] Administration Past Medical History Medical History BPH (benign prostatic hyperplasia) History of pulmonary embolus (PE) Recurrent bacterial cystitis Past Surgical History Surgical History H/O hernia repair 1963 History of root canal procedure 1988 Social History Smoking Status: Never smoker Do You Dip or Chew Tobacco: No Hx Alcohol Use: No Hx Substance Use: No Physical Exam Vital Signs Last Vital Signs Temp 97.7 F 02/01/23 11:50 Pulse 57 L 02/01/23 11:50 Resp 18 02/01/23 11:50 BP 144/77 H 02/01/23 11:50 Pulse Ox 94 02/01/23 11:50 O2 Del Method Room Air 02/01/23 11:50 Testing Laboratory Results 02/01/23 05:39 02/01/23 05:39 PT 11.8 Seconds (9.0-12.0) 01/31/23 09:04 INR 1.1 (0.9-1.1) 01/31/23 09:04 02/01/23 08:47 POC Glucose 109 H Electrocardiogram Date: 01/31/23 Sinus bradycardia with occasional Premature ventricular complexes, rate 52 bpm Otherwise normal ECG When compared with ECG of 16-MAY-2023 15:04, Premature ventricular complexes are now Present Nonspecific T wave abnormality now evident in Inferior leads Confirmed by Tyrell Mary ([id number]) on 02/01/2023 1:02:48 PM Chest X-Ray Date: 01/31/23 Findings: + NAD Echocardiogram Date: 08/19/22 LV systolic function is normal Grade 1 diastolic dysfunction RV is normal in size and function
[2023-02-01] MEDS ORDERED: LIDOCAINE 2% 2 ML VIAL/AMP(20MG/ML) INFIL ONE (13:39)
[2023-02-01] MEDS ORDERED: ONDANSETRON INJ 2 MG/ML 2 ML VIAL ONE (13:39)
[2023-02-01] MEDS ORDERED: ROCURONIUM BROMIDE 10 MG/ML 5 ML VIAL IV ONE (13:39)
[2023-02-01] MEDS ORDERED: PROPOFOL IV EMULSION 10 MG/ML 20 ML VIAL IV ONE (13:39)
[2023-02-01] MEDS ORDERED: MIDAZOLAM HCL 1 MG/ML 2ML VIAL ONE (13:39)
[2023-02-01] MEDS ORDERED: fentaNYL citrate PF 100 MCG/2 ML VIAL ONE (13:39)
[2023-02-01] MEDS ORDERED: SUCCINYLCHOLINE CHLORIDE 20 MG/ML 10 ML VIAL IV ONE (13:39)
[2023-02-01] MEDS ORDERED: ONDANSETRON INJ 2 MG/ML 2 ML VIAL IV PRN (13:53)
[2023-02-01] MEDS ORDERED: ATROPINE SULFATE 0.1 MG/ML 10ML SYR IV PRN (13:53)
[2023-02-01] MEDS ORDERED: fentaNYL citrate PF 100 MCG/2 ML VIAL IV PRN (13:53)
[2023-02-01] MEDS ORDERED: ePHEDrine sulfate 50 MG/ML AMP IV PRN (13:53)
--- NOTE | 2023-02-01 14:08 | Gastrointestinal Consultation ---
Date of Consultation February 01, 2023 Assessment & Plan (1) Elevated LFTs: The patient presents for abdominal discomfort and elevated liver enzymes and equivocal imaging. Given the persistent discomfort and bilirubin of almost 3 we will proceed with upper endoscopy and endoscopic ultrasound today. If found to have evidence of gallstones during the EUS we will plan for ERCP at the same time as well. We discussed the risks and benefits with the patient and his , these include bleeding infection perforation pain pancreatitis failed biliary cannulation and need for follow-up studies. As the patient is on anticoagulation at home is at a higher than average risk of perioperative complications, and specific his bleeding risk is higher than average. History of Present Illness Reason for Consultation: Suspected common bile duct stones Requesting Physician: Dr. Kolb and Dr. Spagnler Attending Physician: Rick Chan MD History of Present Illness The patient is a 67-year-old male who presented to the emergency room for evaluation of abdominal discomfort. Imaging does reveal cholelithiasis, it was negative for evidence of common bile duct stones however the patient does have persistently elevated bilirubins to include a bilirubin of greater than 2.5. Further evaluation has been requested for possible endoscopic ultrasound and ERCP. The patient reports that he continues to have abdominal discomfort located to the right-hand side, this waxes and wanes in intensity and has been improved with narcotic analgesia. Allergies Allergy/AdvReac Type Severity Reaction Status Date / Time amoxicillin Allergy Severe Hives Unverified 02/01/23 13:33 Home Medications Medication Instructions Recorded Confirmed Type cholecalciferol (vitamin D3) 25 25 mcg PO DAILY 02/27/21 01/31/23 History mcg (1,000 unit) tablet (Vitamin D3) tamsulosin 0.4 mg capsule (Flomax) 0.4 mg PO DAILY 02/27/21 01/31/23 History zinc 50 mg tablet 50 mg PO DAILY 02/27/21 01/31/23 History apixaban 5 mg (74 tabs) tablets in 5 mg PO BID #74 ea 08/19/22 01/31/23 Rx a dose pack (Eliquis) cyanocobalamin (vitamin B-12) 1,000 mcg PO DAILY 01/31/23 01/31/23 History 1,000 mcg tablet (Vitamin B-12) Patient History Medical History BPH (benign prostatic hyperplasia) History of pulmonary embolus (PE) Recurrent bacterial cystitis Surgical History H/O hernia repair 1963 History of root canal procedure 1988 Social History Smoking Status: Never smoker Do You Dip or Chew Tobacco: No; Hx Alcohol Use: No Hx Substance Use: No Preferred Language: Armenian Communication Ability: Effective Ammonium Nitrate Crystallizer Required: No Beliefs That Will Affect Care: None marital status: Current Living Situation: Spouse Current Living Situation Comment: at home current occupational status: employed current occupation: Banker Feels Safe at Home: Yes Diet: regular Assistive Devices: Glasses Review of Systems Constitutional: + fever and + malaise; no chills, no sweats and no weight loss Eyes: no diplopia Ear, Nose, Mouth, Throat: no foul smell and no facial pain Respiratory: no cough, no change in sputum and no hemoptysis Cardiovascular: no chest pain with activity and no dyspnea at rest Gastrointestinal: + abdominal pain; no belching and no vomiting Genitourinary: no urinary frequency Musculoskeletal: no radicular pain Integumentary: no non-healing lesions Neurologic: no falls and no paralysis Psychiatric: no hopelessness and no anhedonia Endocrine: no polydipsia Hematologic / Lymphatic: + easy bleeding and + coagulopathy Patient on longstanding Eliquis for history of pulmonary embolus Physical Exam Eyes: mild icterus noted ENMT: Mallampati Class: III Neck: normal visual inspection Respiratory: normal respiratory effort, lungs clear to auscultation Cardiovascular: Rate/Rhythm: regular rate Heart Sounds: + murmur; no click Gastrointestinal (Abdomen): Percussion/Palpation: + abdomen tender and abdomen soft; no guarding and abdomen not rigid Skin: no rashes, warm and dry Neurologic: Speech / Cognition: normal speech Results & Data Vital Signs (Past 12 Hours) Vital Signs Temp Pulse Pulse Pulse Resp BP BP 02/01/23 13:33 36.7 C 59 L 20 153/78 H 02/01/23 11:50 36.5 C 57 L 18 144/77 H 02/01/23 08:08 78 149/82 H 02/01/23 07:22 36.8 C 58 L 18 175/76 H 02/01/23 06:00 54 L 02/01/23 04:00 36.7 C 55 L 18 BP Pulse Ox O2 Del Method 02/01/23 13:33 97 Room Air 02/01/23 11:50 94 Room Air 02/01/23 08:08 02/01/23 07:22 95 Room Air 02/01/23 06:00 02/01/23 04:00 140/77 94 Room Air Laboratory Results Laboratory Results - last 24 hr 02/01/23 02/01/23 02/01/23 05:39 05:39 08:47 WBC 6.45 RBC 4.63 L Hgb 13.9 L Hct 40.5 L MCV 87.5 MCH 30.0 MCHC 34.3 RDW Std Deviation 43.1 RDW Coeff of Louie 13.5 Plt Count 159 MPV 10.2 Immature Gran % (Auto) 0.3 Neut % (Auto) 71.5 Lymph % (Auto) 19.2 [place] % (Auto) 7.6 Eos % (Auto) 1.2 Baso % (Auto) 0.2 Neut # (Auto) 4.61 Lymph # (Auto) 1.24 [place] # (Auto) 0.49 Eos # (Auto) 0.08 Baso # (Auto) 0.01 Immature Gran # (Auto) 0.02 Sodium 137 Potassium 4.1 Chloride 106 Carbon Dioxide 26 Anion Gap 5 BUN 14 Creatinine 1.12 Est Cr Clr Drug Dosing 77.6 Est GFR ( Amer) 77.3 Est GFR (Non-Af Amer) 66.7 BUN/Creatinine Ratio 12.5 Glucose 98 POC Glucose 109 H Calcium 8.8 Magnesium 2.1 Total Bilirubin 2.9 H Direct Bilirubin 1.5 H AST 265 H ALT 331 H Alkaline Phosphatase 71 Total Protein 6.3 Albumin 3.8 Diagnostic Findings MR MRCP HISTORY: 67 years-old Male Gallbladder r/o acute upper abdominal pain COMPARISON: CT of same day TECHNIQUE: MRCP without the use of IV contrast was obtained FINDINGS: No acute process of the imaged lower chest. Unremarkable spleen, pancreas, adrenal glands and liver. The study is motion degraded. Mildly distended gallbladder with cholelithiasis. No bladder wall thickening, or pericholecystic fluid. Normal diameter of the common bile duct measuring 5 mm. No choledocholithiasis or pancreatic divisum. Mild nonspecific bilateral perinephric stranding. 2.4 cm cyst of the interpolar left kidney. No hydronephrosis. Unremarkable aorta and IVC. No bowel obstruction or bowel wall thickening. Moderate fecal retention in the right hemicolon. IMPRESSION: 1. Cholelithiasis without evidence of acute cholecystitis. 2. No biliary duct dilation or choledocholithiasis. ABDOMEN AND PELVIS CT WITH IV CONTRAST CT DOSE: 1549.61 mGy.cm HISTORY: Acute epigastric abdominal pain Mid abdominal and epigastric pain TECHNIQUE: Multiaxial CT images of the abdomen and pelvis were performed following the IV administration of Optiray, A dose lowering technique was utilized adhering to the principles of ALARA. COMPARISON STUDY: 12/04/2020 FINDINGS: Mild cardiomegaly. Left hemidiaphragmatic elevation with mild bibasilar atelectasis. No free air. Unremarkable spleen, and pancreas. Mild adrenal gland thickening noted bilaterally suggestive of hyperplasia. Clinical gallbladder wall thickening. 10 mm left hepatic lobe cyst. The liver is otherwise unremarkable. Patency of the hepatic and portal veins. 2.1 cm cyst of the superior pole left kidney. Several scattered subcentimeter hypodensities of the kidneys are too small to characterize, likely additional cysts. There is no hydronephrosis. Prostatomegaly. Urinary bladder wall thickening with partial distention. Unremarkable abdominal aorta with mild atherosclerosis. No lymphadenopathy. Mildly distended fluid-filled stomach. Small duodenal diverticulum. No bowel obstruction or bowel wall thickening. No free fluid or mesenteric inflammation. Colonic diverticulosis. Normal appendix. Tiny fat filled umbilical hernia. Unremarkable soft tissues. No acute fracture. IMPRESSION: 1. Equivocal gallbladder wall thickening. Correlation with right upper quadrant ultrasound recommended. 2. No bowel obstruction or bowel wall thickening. 3. Colonic diverticulosis. 4. Additional findings as above.
[2023-02-01] MEDS ORDERED: INDOMETHACIN 50 MG SUPP PR ONE (14:29)
--- NOTE | 2023-02-01 14:40 | GI REPORT ---
Patient Name: Keegan Edwards Procedure Date: 02/01/2023 2:19 PM Date of : 1955 Admit Type: Inpatient Age: 67 Gender: Male Attending MD: Kaylyn Christopher DO, Procedure: Upper GI endoscopy Providers: Kaylyn Christopher DO Referring MD: Rick Maldonado Indications: Epigastric abdominal pain, Abdominal pain in the right upper quadrant Medicines: General Anesthesia Complications: No immediate complications. Estimated blood loss: Minimal. Estimated Blood Loss: Estimated blood loss: none. Procedure: Pre-Anesthesia Assessment: - Prior to the procedure, a History and Physical was performed, and patient medications, allergies and sensitivities were reviewed. The patient's tolerance of previous anesthesia was reviewed. - The risks and benefits of the procedure and the sedation options and risks were discussed with the patient. All questions were answered and informed consent was obtained. - Patient identification and proposed procedure were verified prior to the procedure by the physician, the nurse and the teacher education director. The procedure was verified in the pre-procedure area in the procedure room. - Pre-procedure physical examination revealed no contraindications to sedation. - ASA Grade Assessment: III - A patient with severe systemic disease. - After reviewing the risks and benefits, the patient was deemed in satisfactory condition to undergo the procedure. - The anesthesia plan was to use general anesthesia. - Immediately prior to administration of medications, the patient was re-assessed for adequacy to receive sedatives. - The heart rate, respiratory rate, oxygen saturations, blood pressure, adequacy of pulmonary ventilation, and response to care were monitored throughout the procedure. - The physical status of the patient was re-assessed after the procedure. After obtaining informed consent, the endoscope was passed under direct vision. Throughout the procedure, the patient's blood pressure, pulse, and oxygen saturations were monitored continuously. The Endoscope was introduced through the mouth, and advanced to the third part of duodenum. The upper GI endoscopy was accomplished without difficulty. The patient tolerated the procedure well. Findings: The examined esophagus was normal. The Z-line was regular and was found 38 cm from the incisors. The gastric fundus and gastric body were normal. A small amount of food (residue) was found in the gastric antrum. The examined duodenum was normal. Impression: - Normal esophagus. - Z-line regular, 38 cm from the incisors. - Normal gastric fundus and gastric body. - A small amount of food (residue) in the stomach. - Normal examined duodenum. - No specimens collected. Recommendation: - Perform an upper endoscopic ultrasound (UEUS) today. Kaylyn Christopher D.O. Kaylyn Christopher, 02/01/2023 2:39:28 PM This report has been signed electronically. Note Initiated On: 02/01/2023 2:19 PM Number of Addenda: 0 I attest to the content of the Intraoperative Record and orders documented therein, exceptions below {[id number]}
--- NOTE | 2023-02-01 14:49 | GI REPORT ---
Patient Name: Keegan Edwards Procedure Date: 02/01/2023 2:20 PM Date of : 1955 Admit Type: Inpatient Age: 67 Gender: Male Attending MD: Kaylyn Christopher DO, Procedure: Upper EUS Providers: Kaylyn Christopher DO Referring MD: Scott Irby Indications: Elevated liver enzymes, Suspected choledocholithiasis Medicines: General Anesthesia Complications: No immediate complications. Estimated blood loss: Minimal. Estimated Blood Loss: Estimated blood loss was minimal. Procedure: Pre-Anesthesia Assessment: - Prior to the procedure, a History and Physical was performed, and patient medications, allergies and sensitivities were reviewed. The patient's tolerance of previous anesthesia was reviewed. - The risks and benefits of the procedure and the sedation options and risks were discussed with the patient. All questions were answered and informed consent was obtained. - Patient identification and proposed procedure were verified prior to the procedure by the physician, the nurse and the classroom coordinator. The procedure was verified in the procedure room. - Pre-procedure physical examination revealed no contraindications to sedation. - ASA Grade Assessment: III - A patient with severe systemic disease. - After reviewing the risks and benefits, the patient was deemed in satisfactory condition to undergo the procedure. - The anesthesia plan was to use general anesthesia. - Immediately prior to administration of medications, the patient was re-assessed for adequacy to receive sedatives. - The heart rate, respiratory rate, oxygen saturations, blood pressure, adequacy of pulmonary ventilation, and response to care were monitored throughout the procedure. - The physical status of the patient was re-assessed after the procedure. After obtaining informed consent, the endoscope was passed under direct vision. Throughout the procedure, the patient's blood pressure, pulse, and oxygen saturations were monitored continuously. The Endosonoscope was introduced through the mouth, and advanced to the second part of duodenum. The upper EUS was accomplished without difficulty. The patient tolerated the procedure well. Findings: ENDOSONOGRAPHIC FINDING: : There was no sign of significant endosonographic abnormality in the ampulla. No masses were identified. Two stones were visualized endosonographically in the lower third of the main bile duct. The stones measured up to 5 mm in greatest dimension. They were hyperechoic and characterized by shadowing. Multiple stones were visualized endosonographically in the gallbladder. They were hyperechoic and characterized by shadowing. There was no sign of significant endosonographic abnormality in the entire pancreas. No masses, no cysts. There was abnormal echogenicity in the entire examined liver. This area was hyperechoic. No lymphadenopathy seen. There was no sign of significant endosonographic abnormality in the left adrenal gland. No adrenal gland enlargement was identified. Impression: - There was no sign of significant pathology in the ampulla. - Two stones were visualized endosonographically in the lower third of the main bile duct. - Multiple stones were visualized endosonographically in the gallbladder. - There was no sign of significant pathology in the entire pancreas. - There was abnormal echogenicity in the entire examined liver. This was hyperechoic. Tissue has not been obtained. However, the endosonographic appearance is suggestive of fatty infiltration. - Endosonographic images of the left adrenal gland were unremarkable. - No specimens collected. Recommendation: - Perform an ERCP today. Kaylyn Christopher D.O. Kaylyn Christopher, 02/01/2023 2:49:40 PM This report has been signed electronically. Note Initiated On: 02/01/2023 2:20 PM Number of Addenda: 0 I attest to the content of the Intraoperative Record and orders documented therein, exceptions below {[id number]}
[2023-02-01] MEDS ORDERED: PHENYLEPHRINE HCL 10 MG/ML VIAL ONE (14:56)
[2023-02-01] MEDS ORDERED: SUGAMMADEX SODIUM 200 MG/2 ML VIAL IV ONE (14:59)
--- NOTE | 2023-02-01 15:13 | GI REPORT ---
Patient Name: Keegan Edwards Procedure Date: 02/01/2023 2:21 PM Date of : 1955 Admit Type: Inpatient Age: 67 Gender: Male Attending MD: Kaylyn Christopher DO, Procedure: ERCP Providers: Kaylyn Christopher DO Referring MD: Referred Self Indications: Abdominal pain of suspected biliary origin, Abnormal endoscopic ultrasound of the biliary system, Jaundice Medicines: General Anesthesia Complications: No immediate complications. Estimated blood loss: Minimal. Estimated Blood Loss: Estimated blood loss was minimal. Procedure: Pre-Anesthesia Assessment: - Prior to the procedure, a History and Physical was performed, and patient medications, allergies and sensitivities were reviewed. The patient's tolerance of previous anesthesia was reviewed. - The risks and benefits of the procedure and the sedation options and risks were discussed with the patient. All questions were answered and informed consent was obtained. - Patient identification and proposed procedure were verified prior to the procedure by the physician, the nurse and the duralumin metalworker. The procedure was verified in the procedure room. - Pre-procedure physical examination revealed no contraindications to sedation. - ASA Grade Assessment: III - A patient with severe systemic disease. - After reviewing the risks and benefits, the patient was deemed in satisfactory condition to undergo the procedure. - The anesthesia plan was to use general anesthesia. - Immediately prior to administration of medications, the patient was re-assessed for adequacy to receive sedatives. - The heart rate, respiratory rate, oxygen saturations, blood pressure, adequacy of pulmonary ventilation, and response to care were monitored throughout the procedure. - The physical status of the patient was re-assessed after the procedure. After obtaining informed consent, the scope was passed under direct vision. Throughout the procedure, the patient's blood pressure, pulse, and oxygen saturations were monitored continuously. The Duodenoscope was introduced through the mouth, and advanced to the duodenum and used to inject contrast into the bile duct. The ERCP was accomplished without difficulty. The patient tolerated the procedure well. Findings: The micro computer data processor film was normal. The esophagus was successfully intubated under direct vision without detailed examination of the pharynx, larynx, and associated structures, and upper GI tract. The upper GI tract was grossly normal. The major papilla was adjacent to a diverticulum. The bile duct was deeply cannulated with the short-nosed traction sphincterotome and guidewire. Contrast was injected (during injection of the CBD some contrast passing the pancreas suggestive of a common opening, PD not cannulated today. I personally interpreted the bile duct images. Contrast extended to the cystic duct which was patent and revealed numerous stones in the gallbladder. Contrast extended to the hepatic ducts. The lower third of the main bile duct contained filling defect(s) thought to be a stone and sludge. Biliary sphincterotomy was made with a monofilament Fusion OMNI sphincterotome using ERBE electrocautery. There was no post-sphincterotomy bleeding. To discover objects, the biliary tree was swept with a 12 mm balloon starting at the bifurcation. Sludge was swept from the duct. Two stones were removed. No stones remained. One 10 Fr by 8 cm biliary stent with a single external flap and a single internal flap was placed 8 cm into the common bile duct. Bile flowed through the stent. The stent was in good position. The endoscope was withdrawn from the patient. Indomethacin 100 mg was given via suppository to decrease the risk of post-ERCP pancreatitis (PEP). Impression: - The major papilla was adjacent to a diverticulum. - Choledocholithiasis was found. Complete removal was accomplished by biliary sphincterotomy and balloon extraction. - One biliary stent was placed into the common bile duct. - Indomethacin given to decrease risk of post-ERCP pancreatitis. Recommendation: - Avoid aspirin and nonsteroidal anti-inflammatory medicines for 5 days. - Clear liquid diet. - Use broad spectrum antibiotics for 10 days. - Repeat ERCP in 6 weeks to remove stent. - Cholecystectomy per general surgery Kaylyn Christopher D.O. Kaylyn Christopher DO 02/01/2023 3:13:34 PM This report has been signed electronically. Note Initiated On: 02/01/2023 2:21 PM Number of Addenda: 0 I attest to the content of the Intraoperative Record and orders documented therein, exceptions below {[id number]}
--- NOTE | 2023-02-01 15:15 | Post Operative Brief Note ---
Immediate Post Op Note v1 Date of Surgery February 01, 2023 Pre & Post Diagnosis Operation Date: 02/01/23 I identified the patient and participated in the time-out.: Yes Procedure EGD EUS ERCP with spincterotomy, stone extraction and stent insertion Surgeon Kaylyn Christopher, DO Director Telemetry none Estimated Blood Loss 0 Findings Consistent with Post-Op Diagnosis
--- NOTE | 2023-02-01 15:21 | Communication Note ---
Date of Service: February 01, 2023 Patient underwent EGD, EUS and ultimatly ERCP for choledocholithiasis. Recommendations Hold NSAIDs and anticoagulation for 5 days of the possible continue abx coverage for a total of 10 days cholecystectomy per general surgery repeat ERCP for stent removal in 6 - 8 weeks patient may have clears this evening
--- NOTE | 2023-02-01 16:38 | Anesthesiology Progress Note ---
Date of Service February 01, 2023 Anesthesia Post Procedure Vital Signs Vital Signs: Temp Pulse Pulse Pulse Resp BP BP 02/01/23 16:29 57 L 02/01/23 15:45 02/01/23 15:40 36.5 C 62 15 124/86 02/01/23 15:30 81 26 H 135/81 02/01/23 15:20 36.0 C L 82 26 H 152/75 H 02/01/23 13:33 36.7 C 59 L 20 153/78 H 02/01/23 11:50 36.5 C 57 L 18 144/77 H 02/01/23 08:08 78 149/82 H 02/01/23 07:22 36.8 C 58 L 18 175/76 H 02/01/23 06:00 54 L 02/01/23 04:00 36.7 C 55 L 18 01/31/23 23:00 36.6 C 52 L 18 01/31/23 23:25 54 L 01/31/23 20:00 36.5 C 54 L 18 BP Pulse Ox Pulse Ox O2 Del Method O2 Del Method O2 Flow Rate 02/01/23 16:29 02/01/23 15:45 95 Room Air 02/01/23 15:40 93 Room Air 02/01/23 15:30 95 Room Air 02/01/23 15:20 94 Oxymask 4 02/01/23 13:33 97 Room Air 02/01/23 11:50 94 Room Air 02/01/23 08:08 02/01/23 07:22 95 Room Air 02/01/23 06:00 02/01/23 04:00 140/77 94 Room Air 01/31/23 23:00 132/76 94 Room Air 01/31/23 23:25 01/31/23 20:00 131/75 95 Room Air Pain Intensity Abdomen: Pain Intensity: 4 Transfer of Care Handoff Completed per policy Notes Mental Status: alert / awake / arousable and participated in evaluation Patient Amnestic to Procedure: Yes Nausea / Vomiting: adequately controlled Pain: adequately controlled Airway Patency, RR, SpO2: stable & adequate BP & HR: stable & adequate Hydration State: stable & adequate Anesthetic Complications: no major complications apparent and Pt Satisfied with anesthetic care
--- NOTE | 2023-02-01 19:48 | Fluoroscopy Report ---
[place] ERCP biliary ductal CLINICAL HISTORY: EUS POSSIBLE ERCP TECHNIQUE: 4 views were obtained with the C-arm in the OR with the above procedure. Total fluoroscopy time was 11.3 seconds. Radiation dose was 3.3 mGy. Comparison: None available at the time of this dictation. FINDINGS/IMPRESSION: Intraoperative images were obtained of ERCP. In the final image, no filling defe cts are seen. Please correlate with intraoperative fluoroscopy and operative report. ACT 112: Negative or not required by law. Electronically signed by: Balbir Garcia M.D. 02/01/2023 7:46 PM
[2023-02-02] MEDS: metroNIDAZOLE 500 MG/100 ML BAG IV SCH ×3 (04:40→19:29)
[2023-02-02] MEDS: HEPARIN SOD 5,000 UNIT/0.5 ML VIAL SQ SCH ×3 (06:08→21:16)
[2023-02-02 06:48] LABS: Basophils # (auto) 0.03 K/uL (0.00-0.20); Basophils % (auto) 0.5 %; Eosinophils # (auto) 0.13 K/uL (0.00-0.50); Eosinophils % (auto) 2.3 %; Hematocrit (blood only) 38.6 % (42.0-52.0); Immature Granulocytes # (auto) 0.01 K/uL (0.01-0.20); Immature Granulocytes % (auto) 0.2 %; Lymphocytes # (auto) 1.39 K/uL (1.20-3.40); Lymphocytes % (auto) 24.1 %; Mean Corpuscular Hemoglobin 30.1 pg (25.0-34.0); Mean Corpuscular Hgb Conc 33.7 g/dL (32.0-36.0); Mean Corpuscular Volume 89.4 fL (80.0-100.0); Mean Platelet Volume 10.5 fL (9.4-12.4); Monocytes # (auto) 0.55 K/uL (0.11-0.59); Monocytes % (auto) 9.5 %; Neutrophils # (auto) 3.65 K/uL (1.40-6.50); Neutrophils % (auto) 63.4 %; Platelet Count 146 K/uL (130-400); RDW Coefficient of Variation 13.2 % (11.5-14.5); RDW Standard Deviation 43.4 fL (36.4-46.3); Red Blood Count 4.32 M/uL (4.70-6.10); White Blood Count 5.76 K/ul (4.8-10.8)
[2023-02-02 07:02] LABS: Albumin Globulin Ratio 1.4 (0.9-2); Albumin Level 3.6 gm/dl (3.4-5.0); BUN Creatinine Ratio 8.7 (10-20); Bilirubin,Total 1.8 mg/dl (0.2-1.0); Calcium 8.3 mg/dl (8.6-10.3); Creatinine Clr Calc Pharmacy 69.1 ml/min; Est GFR (Non-African American) 57.8 ml/min; Globulin 2.5 gm/dl (2.5-4.0); Potassium 3.7 mmol/L (3.5-5.1); Total Protein 6.1 gm/dl (6.0-8.3)
[2023-02-02] MEDS: ZINC SULFATE 220 MG CAPSULE PO SCH (08:08)
[2023-02-02] MEDS: TAMSULOSIN HCL 0.4 MG CAP PO SCH (08:09)
[2023-02-02] MEDS: FAMOTIDINE 20 MG in SYRINGE 3 ML IV SCH ×2 (08:16→21:16)
--- NOTE | 2023-02-02 10:22 | Gastroenterology Progress Note ---
Date of Service February 02, 2023 Assessment & Plan (1) Choledocholithiasis: Plan: Resolved by ERCP yesterday. Plan - Avoid aspirin and nonsteroidal anti-inflammatory medicines for 5 days. - Use broad spectrum antibiotics for 10 days. - Repeat ERCP in 6 weeks to remove stent. GI will sign off. Further care by general surgery - cholecystectomy today. Admission and Anticipated Discharge Date Admission Date: January 31, 2023 Supervising Physician Co-Signing Physician Notes I personally saw and evaluated the patient on 02/02/2023 with LANNY Deutsch and agree with her findings and plan of care. On exam is abdomen is soft and non-tender. updated at bedside. Patient states he feels well. He is s/p EUS/ERCP yesterday found to have choledocholithiasis with stent placement into CBD. LFTs are improving today and he is going for cho lecystectomy. He should continue antibiotics for a total of 10 days and hold all NSAIDs/anticoagulation for 5 days. We will arrange outpatient ERCP in 6-8 weeks for stent removal. Continue to trend daily LFTs. GI will sign off but please call back with questions or concerns. Melissa Babin, DO Gastroenterology and Hepatology Subjective 67 yr old male admitted on for Abd pain. Imaging w/o bile duct abnormalities but LFTs were elevated. Underwent ERCP yesterday w sphincterotomy and stone removal, stent placed. LFTs improved today compared to yesterday. NPO Awaiting lap choley today. Review of Systems Review of Systems: ROS: Gen: Denies weakness, fevers, weight loss Eyes: No eye redness, or pain, no recent vision changes Resp: No SOB, no cough Cardio: No palpitations/irregular beats, no chest pain GI: Mild RUQ pain currently, otherwise negative. NPO : Denies pain on urination Skin: No jaundice, itching or new rashes Physical Exam Constitutional: WD/WN, vitals as above Eyes: PERRL, conjunctivae normal, anicteric sclerae ENMT: external ear and nose normal, oropharynx normal Neck: trachea midline, no thyromegaly Respiratory: normal respiratory effort, lungs clear to auscultation Cardiovascular: RRR, no murmur, no edema Gastrointestinal (Abdomen): normal bowel sounds, soft, nontender, no hepatosplenomegaly Musculoskeletal: no cyanosis or clubbing, extremities motor strength 5/5 Skin: no rashes, warm and dry Neurologic: PERRL, EOMI, accommodation nl, no face palsy, no dysarthria Psychiatric: A+Ox3, euthymic affect Lymphatic: no cervical or axillary lymphadenopathy Results & Data Vital Signs (Past 12 Hours) Vital Signs Temp Pulse Resp BP Pulse Ox O2 Del Method 02/02/23 08:21 36.6 C 50 L 14 150/77 H 95 Room Air 02/02/23 04:52 36.6 C 54 L 16 156/79 H 96 Room Air 02/02/23 00:11 36.5 C 53 L 18 143/69 H 94 Room Air Laboratory Results T Bili 1.8, AST 200, ALT 351, ALk PHos 84, WBC 5.6, Hb 13, Hct 38, Plts 146, Na 139, K 3.7, Cl 105, CO2 30, BUN 11, Cr 1.26, glucose 105. Diagnostic Findings EUS yesterday - Two stones were visualized endosonographically in the lower third of the main bile duct. - Multiple stones were visualized endosonographically in the gallbladder. ERCP 02/02/23: - The major papilla was adjacent to a diverticulum. - Choledocholithiasis was found. Complete removal was accomplished by biliary sphincterotomy and balloon extraction. - One biliary stent was placed into the common bile duct. - Indomethacin given to decrease risk of post-ERCP pancreatitis.
[2023-02-02] MEDS: cefTRIAXone SODIUM 2,000 MG in DEXTROSE 5 % MINI-B 50 ML IV SCH (12:39)
--- NOTE | 2023-02-02 12:50 | Anesthesiology Consultation ---
Date of Service February 02, 2023 Assessment & Plan Chart Review Chart Review: order entry initiated History Surgery Operation Date: 02/01/23 09:30 Proposed Procedures p Endoscopic Ultrasonography Upper - Kaylyn Christopher DO Operation Date: 02/02/23 07:00 Proposed Procedures p Laparoscopic Cholecystectomy - Scott Kolb DO Height/Weight Height: 5 ft 10 in Weight: 111.2 kg Allergies Allergy/AdvReac Type Severity Reaction Status Date / Time amoxicillin Allergy Severe Hives Unverified 02/01/23 13:33 Medications Home Medications Medication Instructions Recorded Confirmed Last Taken cholecalciferol (vitamin D3) 25 25 mcg PO DAILY 02/27/21 01/31/23 08/09/22 mcg (1,000 unit) tablet (Vitamin D3) tamsulosin 0.4 mg capsule (Flomax) 0.4 mg PO DAILY 02/27/21 01/31/23 08/09/22 zinc 50 mg tablet 50 mg PO DAILY 02/27/21 01/31/23 08/09/22 apixaban 5 mg (74 tabs) tablets in 5 mg PO BID #74 ea 08/19/22 01/31/23 Unknown a dose pack (Zakada) cyanocobalamin (vitamin B-12) 1,000 mcg PO DAILY 01/31/23 01/31/23 Unknown 1,000 mcg tablet (Vitamin B-12) Active Medications Generic Name Dose Route Start Last Admin Trade Name Freq PRN Reason Stop Dose Admin Heparin Sodium (Porcine) 5,000 units 01/31/23 16:00 02/02/23 06:08 Heparin Sod 5,000 Unit/0.5 Ml Vial SQ 03/02/23 15:59 Not Given Q8 MIRACLE Hydromorphone HCl 0.5 mg 01/31/23 13:00 02/01/23 22:23 Hydromorphone Inj 0.5 Mg/0.5 Ml Syr IV 02/14/23 12:59 0.5 mg Q4H PRN Administration Moderate Pain (4,5,6) on NRS Hydromorphone HCl 1 mg 01/31/23 13:00 02/01/23 07:27 Hydromorphone Inj 1 Mg/Ml Syringe IV 02/14/23 12:59 1 mg Q4H PRN Administration Severe Pain (7,8,9,10) on NRS Metronidazole 500 mg in 100 mls @ 100 mls/hr 01/31/23 20:00 02/02/23 06:06 Flagyl IV 02/04/23 19:59 Infused Q8H MIR[facility]LE Infusion Protocol Ceftriaxone Sodium 2,000 mg/ 50 mls @ 100 mls/hr 02/01/23 12:00 02/02/23 12:39 Dextrose IV 02/04/23 11:59 100 mls/hr Q24H M[facility]LE Administration Protocol Famotidine 20 mg/ Syringe 5 mls @ 2.5 mls/min 01/31/23 21:00 02/02/23 08:16 IV 03/02/23 20:59 2.5 mls/min BID MIRACLE Administration Dextrose/Sodium Chloride 1,000 mls @ 80 mls/hr 02/01/23 09:00 02/01/23 22:17 D5w And Nss IV 03/03/23 08:59 80 mls/hr .[id number] MIRACLE Administration Tamsulosin HCl 0.4 mg 02/01/23 09:00 02/02/23 08:09 Tamsulosin Hcl 0.4 Mg Cap PO 03/03/23 08:59 0.4 mg DAILY MIRACLE Administration Zinc Sulfate 220 mg 02/01/23 09:00 02/02/23 08:08 Zinc Sulfate 220 Mg Capsule PO 03/03/23 08:59 Not Given DAILY MIRACLE NPO Date Last Intake of Fluids: 02/01/23 Time Last Intake of Fluids: 09:00 Last Intake of Fluids Comment: appro 11-12 oz clear liquids for breakfast this am- Dr Zavala made aware Date Last Intake of Solids: 01/30/23 Time Last Intake of Solids: 22:00 Past Medical History Medical History BPH (benign prostatic hyperplasia) History of pulmonary embolus (PE) Recurrent bacterial cystitis Past Surgical History Surgical History H/O hernia repair 1963 History of root canal procedure 1988 Social History Smoking Status: Never smoker Do You Dip or Chew Tobacco: No Hx Alcohol Use: No Hx Substance Use: No Physical Exam Vital Signs Last Vital Signs Temp 97.7 F 02/02/23 10:55 Pulse 55 L 02/02/23 10:55 Resp 16 02/02/23 10:55 BP 166/77 H 02/02/23 10:55 Pulse Ox 97 02/02/23 10:55 O2 Del Method Room Air 02/02/23 10:55 O2 Flow Rate 4 02/01/23 15:20 Testing Laboratory Results 02/02/23 05:34 02/02/23 05:34 PT 11.8 Seconds (9.0-12.0) 01/31/23 09:04 INR 1.1 (0.9-1.1) 01/31/23 09:04 Electrocardiogram Date: 01/31/23 Sinus bradycardia with occasional Premature ventricular complexes, rate 52 bpm Otherwise normal ECG When compared with ECG of 18-AUG-2022 15:04, Premature ventricular complexes are now Present Nonspecific T wave abnormality now evident in Inferior leads Confirmed by Tyrell Mary ([id number]) on 02/01/2023 1:02:48 PM Chest X-Ray Date: 01/31/23 Findings: + NAD Echocardiogram Date: 08/19/22 LV systolic function is normal Grade 1 diastolic dysfunction RV is normal in size and function
[2023-02-02] MEDS ORDERED: LACTATED RINGER'S 1,000 ML IV SCH (14:00)
[2023-02-02] MEDS ORDERED: ePHEDrine sulfate 50 MG/ML AMP IV PRN (14:07)
[2023-02-02] MEDS ORDERED: ATROPINE SULFATE 0.1 MG/ML 10ML SYR IV PRN (14:07)
[2023-02-02] MEDS ORDERED: fentaNYL citrate PF 100 MCG/2 ML VIAL IV PRN (14:07)
[2023-02-02] MEDS ORDERED: ONDANSETRON INJ 2 MG/ML 2 ML VIAL IV PRN ×2 (14:07→16:33)
[2023-02-02] MEDS ORDERED: ONDANSETRON INJ 2 MG/ML 2 ML VIAL ONE (14:34)
[2023-02-02] MEDS ORDERED: DEXAMETHASONE SOD INJ 4 MG/ML VIAL ONE (14:34)
[2023-02-02] MEDS ORDERED: MIDAZOLAM HCL 1 MG/ML 2ML VIAL ONE (14:34)
[2023-02-02] MEDS ORDERED: PROPOFOL IV EMULSION 10 MG/ML 20 ML VIAL IV ONE (14:34)
[2023-02-02] MEDS ORDERED: LIDOCAINE 2% 2 ML VIAL/AMP(20MG/ML) INFIL ONE (14:34)
[2023-02-02] MEDS ORDERED: fentaNYL citrate PF 100 MCG/2 ML VIAL ONE ×2 (14:34)
[2023-02-02] MEDS ORDERED: ROCURONIUM BROMIDE 10 MG/ML 5 ML VIAL IV ONE (14:34)
--- NOTE | 2023-02-02 14:51 | History & Physical Bridge Note ---
Date of Service February 02, 2023 History & Physical Bridge Note I have examined the patient, reviewed the History & Physical and in the interval since the performance of the History & Physical I have noted the following changes of clinical significance: feeling well. ercp complete. discussed risks /options ( bleeding/infection/injury to a bile duct or other organs, blood clots, dvt/pe, etc...). questions answered. pt agreeable. will proceed with lap joel today
[2023-02-02] MEDS ORDERED: BUPIVACAINE/EPINEPHRINE 0.5% MPF 1:200,000 30 ML VIAL ONE (14:54)
--- NOTE | 2023-02-02 15:08 | Hospitalist Progress Note ---
Date of Service February 02, 2023 Assessment & Plan (1) Epigastric pain: Plan: Cholelithiasis with choledocholithiasis. MRCP PE report noted. GI consultation appreciated. He underwent ERCP on February 01 with sphincterotomy stone extraction and CBD stent placement. He will undergo laparoscopic cholecystectomy later today, February 02 (2) History of pulmonary embolus (PE): Plan: Chest CTA done February 01 revealed near complete resolution of recent PEs. Collin is currently on hold. He is on subcutaneous heparin at this time (3) Elevated transaminase level: Plan: Along with elevated total bilirubin. MRCP report noted. Now improving after ERCP and common bile duct stone extraction. Serial labs. (4) BPH (benign prostatic hyperplasia): Plan: Stable. Continue tamsulosin Plan Hopefully home tomorrow, February 03 Admission and Anticipated Discharge Date Admission Date: February 02, 2023 Subjective Alert and oriented. is at the bedside. On February 01 he underwent ERCP with sphincterotomy and extraction of the CBD stone. A stent was put in place. Today he will undergo laparoscopic cholecystectomy. Total bilirubin has decreased to 1.8. He remains on Rocephin and Flagyl. Collin remains on hold. Hopefully he can go home tomorrow, on February 03 Review of Systems Review of Systems: Constitutional-no fever or chills ENT-no blurred vision, no double vision, no epistaxis, no sore throat Respiratory-no cough, no wheezing, no shortness of breath Cardiac-no palpitations, no chest pain, no syncope GI-no nausea, vomiting, diarrhea, melena, hematochezia -no urinary retention, no urinary incontinence, no dysuria, no hematuria Musculoskeletal-no joint pain, no muscle tenderness Skin-no bruising, no rashes, no pruritus Neuro-no isolated weakness, no paresthesia, no weakness Psych-no depression, no anxiety Physical Exam Physical Exam: General-alert and oriented x3, no fevers, no chills HEENT-head atraumatic and normocephalic, pupils equal and reactive to light, extraocular muscles intact Neck-no lymphadenopathy or thyromegaly, trachea midline Chest-clear to auscultation percussion. No rales wheezing or rhonchi Cardiac-regular rate and rhythm, normal S1 and S2 Abdomen-normal bowel sounds, nontender, no hepatosplenomegaly Extremities-no cyanosis, clubbing, or edema Neuro-cranial nerves II through XII intact, motor and sensory function within normal limits, strength symmetrical, no focal deficits Psych-normal affect, normal mood Results & Data Results & Data Vital Signs (Past 12 Hours) Vital Signs Temp Pulse Pulse Resp BP Pulse Ox O2 Del Method 02/02/23 08:00 47 L 02/02/23 14:01 36.4 C L 57 L 18 155/76 H 98 Room Air 02/02/23 10:55 36.5 C 55 L 16 166/77 H 97 Room Air 02/02/23 08:21 36.6 C 50 L 14 150/77 H 95 Room Air 02/02/23 04:52 36.6 C 54 L 16 156/79 H 96 Room Air Laboratory Results 02/02/23 05:34 02/02/23 05:34 PG Care Time/CCT Total # of Minutes Spent Total Time Spent with Patient: Total time spent is greater than 50% in coordination of care (as documented) at patient's floor/unit and/or counseling patient: Coding Level of Care Code 65528 SUB INP/OBS CARE 3/50MIN Diagnoses Epigastric pain R10.13 History of pulmonary embolus (PE) Z86.711 Elevated transaminase level R74.01 BPH (benign prostatic hyperplasia) N40.0
[2023-02-02] MEDS ORDERED: SUGAMMADEX SODIUM 200 MG/2 ML VIAL IV ONE (16:04)
--- NOTE | 2023-02-02 16:24 | Operative Report ---
PG Post Operative Report Pre & Post Diagnosis Operation Date: 02/02/23 07:00 Pre-Op Diagnosis: Cholelithiasis Post-Op Diagnosis: Cholelithiasis I identified the patient and participated in the time-out.: Yes Procedure Operation Date: 02/02/23 07:00 Actual Procedures p Laparoscopic Cholecystectomy - Scott Kolb DO Surgeon Scott Kolb DO Online Services Manager none Estimated Blood Loss 20 Findings Consistent with Post-Op Diagnosis Specimens gallbladder Description of Procedure After informed consent was obtained the patient was taken to the operating room and placed in the supine position. After successful intubation the abdomen was sterilely prepped and draped in usual fashion. A periumbilical incision was made with an 11 blade scalpel and carried down through the soft tissue using electrocautery. The anterior rectus fascia was opened using electrocautery and 2 #0 Vicryl stay sutures were placed. The peritoneum was elevated with hemostats and incised under direct vision using Metzenbaum scissors. A finger sweep was performed and a 12 mm Lozano trocar was placed. The abdomen was insufflated to 18 mmHg. The laparoscope was inserted and the abdomen was examined in 360. No gross abnormalities were identified. A subxiphoid 5 mm port and 2 right upper quadrant 5 mm ports were placed under direct vision. The patient was placed in a reverse Trendelenburg position and slightly airplaned to the left. The gallbladder was grasped and elevated superiorly and laterally. A [place] dissector was used to take down adhesions around the neck of the gallbladder. The cystic duct was identified and skeletonized. It was clipped twice proximally and once distally and transected using a laparoscopic scissor. In similar fashion the cystic artery was identified and skeletonized clipped and divided. The gallbladder was removed from the gallbladder fossa with electrocautery. It was placed into an Endo Catch bag. Thorough irrigation was performed. At the end of the procedure there was adequate hemostasis and no evidence of any bile leaks. A final look around the abdomen showed no other abnormalities. The gallbladder and trochars were all removed and the abdomen was desufflated. The fascia of the camera port was closed using 0 Vicryl in a [id number] fashion. All the wounds were irrigated and closed using 4-0 Monocryl. Marcaine was injected around them for postoperative analgesia and skin glue used as a dressing. The patient was awaken extubated and transferred to recovery in stable condition. My [employer] was present throughout the entire case... helped with prepping the patient. With exposure for trocar placement, as well as retracted the gallbladder throughout the case and also assisted with wound closure and dressing placement. I attest to the content of the Intraoperative Record and any orders documented therein. Any exceptions are noted below.
[2023-02-02] MEDS ORDERED: oxyCODONE/ACETAMINOPHEN 5mg/325mg TAB PO PRN ×2 (16:33)
--- NOTE | 2023-02-02 16:43 | Anesthesiology Progress Note ---
Date of Service February 02, 2023 Anesthesia Post Procedure Vital Signs Vital Signs: Temp Pulse Pulse Resp BP Pulse Ox O2 Del Method 02/02/23 16:35 67 14 130/53 L 95 Room Air 02/02/23 16:25 74 18 150/73 H 98 Oxymask 02/02/23 16:18 36.0 C L 80 18 174/85 H 98 Oxymask 02/02/23 08:00 47 L 02/02/23 14:01 36.4 C L 57 L 18 155/76 H 98 Room Air 02/02/23 10:55 36.5 C 55 L 16 166/77 H 97 Room Air 02/02/23 08:21 36.6 C 50 L 14 150/77 H 95 Room Air 02/02/23 04:52 36.6 C 54 L 16 156/79 H 96 Room Air 02/02/23 00:11 36.5 C 53 L 18 143/69 H 94 Room Air 02/01/23 22:01 56 L 02/01/23 19:51 36.6 C 56 L 18 149/78 H 95 Room Air O2 Flow Rate 02/02/23 16:35 02/02/23 16:25 4 02/02/23 16:18 6 02/02/23 08:00 02/02/23 14:01 02/02/23 10:55 02/02/23 08:21 02/02/23 04:52 02/02/23 00:11 02/01/23 22:01 02/01/23 19:51 Pain Intensity Abdomen: Pain Intensity: 0 Transfer of Care Handoff Completed per policy Notes Mental Status: alert / awake / arousable and participated in evaluation Patient Amnestic to Procedure: Yes Nausea / Vomiting: adequately controlled Pain: adequately controlled Airway Patency, RR, SpO2: stable & adequate BP & HR: stable & adequate Hydration State: stable & adequate Anesthetic Complications: no major complications apparent
[2023-02-02] MEDS: HYDROmorphone INJ 1 MG/ML SYRINGE IV PRN (16:54)
[2023-02-02] MEDS: D5W AND NSS 1,000 ML IV SCH (19:18)
[2023-02-03] MEDS: metroNIDAZOLE 500 MG/100 ML BAG IV SCH ×2 (04:18→10:37)
[2023-02-03] MEDS: HEPARIN SOD 5,000 UNIT/0.5 ML VIAL SQ SCH (05:18)
[2023-02-03] MEDS: D5W AND NSS 1,000 ML IV SCH ×2 (05:24→10:41)
[2023-02-03 06:50] LABS: Basophils # (auto) 0.01 K/uL (0.00-0.20); Basophils % (auto) 0.1 %; Hematocrit (blood only) 39.4 % (42.0-52.0); Hemoglobin 13.5 g/dl (14.0-18.0); Immature Granulocytes # (auto) 0.05 K/uL (0.01-0.20); Immature Granulocytes % (auto) 0.5 %; Lymphocytes # (auto) 0.88 K/uL (1.20-3.40); Lymphocytes % (auto) 8.3 %; Mean Corpuscular Hemoglobin 30.3 pg (25.0-34.0); Mean Corpuscular Hgb Conc 34.3 g/dL (32.0-36.0); Mean Corpuscular Volume 88.3 fL (80.0-100.0); Mean Platelet Volume 10.3 fL (9.4-12.4); Monocytes # (auto) 0.65 K/uL (0.11-0.59); Monocytes % (auto) 6.1 %; Neutrophils # (auto) 9.02 K/uL (1.40-6.50); Platelet Count 150 K/uL (130-400); RDW Standard Deviation 42.2 fL (36.4-46.3); Red Blood Count 4.46 M/uL (4.70-6.10); White Blood Count 10.61 K/ul (4.8-10.8)
[2023-02-03 07:16] LABS: Albumin Globulin Ratio 1.5 (0.9-2); Albumin Level 3.7 gm/dl (3.4-5.0); BUN Creatinine Ratio 8.9 (10-20); Bilirubin,Total 1.1 mg/dl (0.2-1.0); Calcium 8.4 mg/dl (8.6-10.3); Creatinine Clr Calc Pharmacy 77.7 ml/min; Est GFR (African American) 77.3 ml/min; Est GFR (Non-African American) 66.7 ml/min; Globulin 2.5 gm/dl (2.5-4.0); Potassium 3.8 mmol/L (3.5-5.1); Total Protein 6.2 gm/dl (6.0-8.3)
[2023-02-03] MEDS: TAMSULOSIN HCL 0.4 MG CAP PO SCH (08:01)
[2023-02-03] MEDS: ZINC SULFATE 220 MG CAPSULE PO SCH (08:01)
[2023-02-03] MEDS: FAMOTIDINE 20 MG in SYRINGE 3 ML IV SCH (08:01)
--- NOTE | 2023-02-03 11:43 | Discharge Summary ---
Date of Service February 03, 2023 Admission HPI Per Admitting Provider Keegan is a 67-year-old male with PMH of obesity, vitamin D deficiency, PE, and BPH. Patient presented with epigastric pain that woke him from sleep at 0330 this morning. He describes it as "constant, sharp" and rated the pain 8/10 at its worst. Pain radiated from the epigastric region to become more generalized abdominal; per patient, radiates from sternum to umbilicus. He has never had an experience like this before. He did not take any medication before arriving in the ED. Patient reports he was squirming around in bed trying to get comfortable, but turning and laying in different positions did not alleviate the pain. Per , patient was also burping a lot this morning, and may have eaten a bad salad last night. No recent changes in diet. Patient denies scapular pain after fatty meals. Patient did not take his morning medications or eat anything this morning. Hx of PE in 09/2022 (on Eliquis). Last took Eliquis at 1915 on 01/30. Hypertensive at 162/79 on arrival; vitals are otherwise h emodynamically stable. ED course: IVF, Zofran, and morphine 4 mg IV ROS: Patient denies fever, LA, lightheadedness, dizziness, CP, pleuritic CP, SOB, cough, hemopytsis, urinary s/s, burning with urination, blood in the urine/stool, or numbness/tingling down arms or legs. Patient endorses chills, sweating, and nausea this morning (resolved). No abdominal pain after receiving morphine in the ED. No PMHx of NM, cancer, diabetes. Surgical hx: Hernia repair as a child in second grade; otherwise, no past abdominal surgeries. No hx of appendicitis. Principal Diagnosis Choledocholithiasis, cholelithiasis Discharge Exam General-alert and oriented x3, no fevers, no chills HEENT-head atraumatic and normocephalic, pupils equal and reactive to light, extraocular muscles intact Neck-no lymphadenopathy or thyromegaly, trachea midline Chest-clear to auscultation percussion. No rales wheezing or rhonchi Cardiac-regular rate and rhythm, normal S1 and S2 Abdomen-normal bowel sounds, no hepatosplenomegaly. Mild tenderness at laparoscopic cholecystectomy sites as expected Extremities-no cyanosis, clubbing, or edema Neuro-cranial nerves II through XII intact, motor and sensory function within normal limits, strength symmetrical, no focal deficits Psych-normal affect, normal mood Discharge Data Allergies Allergy/AdvReac Type Severity Reaction Status Date / Time amoxicillin Allergy Severe Hives Unverified 02/01/23 13:33 Consultations 01/31/23 11:12 Consult General Surgery Routine ED Decision to Admit Stat 01/31/23 15:45 Consult Gastroenterology Routine Procedures Performed Operation Date: 02/02/23 07:00 Actual Procedures p Laparoscopic Cholecystectomy - Scott Kolb, Ordered Studies 01/31/23 09:05 CT Abd and Pelvis [CT abd pelvis IV con only] Stat 01/31/23 12:20 MRI MRCP [MR MRCP] Urgent 02/01/23 [place] ERCP biliary ductal Routine 02/01/23 09:06 CT chest with contrast [CT chest diagnostic w con] Routine 02/01/23 14:06 US upper EUS PACS images Routine 02/01/23 14:08 US upper EUS PACS images Routine Hospital Course (1) Epigastric pain: Cholelithiasis with choledocholithiasis. MRCP PE report noted. GI consultation appreciated. He underwent ERCP on February 01 with sphincterotomy stone extraction and CBD stent placement. He underwent laparoscopic cholecystectomy on, February 02. Postoperative day #1. Stable (2) History of pulmonary embolus (PE): Chest CTA done February 01 revealed near complete resolution of recent PEs. Eliquis has been discontinued (3) Elevated transaminase level: Along with elevated total bilirubin. MRCP report noted. Now improving after ERCP and common bile duct stone extraction. Serial labs. (4) BPH (benign prostatic hyperplasia): Stable. Continue tamsulosin Plan Home today, February 03 Total Time Total Time Spent Total Time Spent (In Minutes): 40 minutes Discharge Plan Discharge Items Patient Disposition: Home - Self-Care Reason For Visit: EPIGASTRIC PAIN Discharge Diagnosis: Choledocholithiasis, cholelithiasis, obstructive hyperbilirubinemia Activity: As commented below Lifting: No more than 25 pounds Bathing Comment: you can shower , no baths or pools for 2 weeks Exercise/Sports: Wait until after follow-up appointment Driving/Machine Use: no driving if taking narcotic pain medication Non-emergency contact: Surgeon Call non-emergency contact if: you have any medication questions, your pain is unusual for you, your temperature is above 101.5, your wound has increased redness, your wound has increased drainage and your wound pain has increased Follow-up/Referrals: Scott Kolb DO [Surgeon] - 02/23/23 1:15 pm (call office for a follow up in 2 weeks ) Kaylyn Christopher DO [Physician] - Dave Mary MD [Primary Care Provider] - Diet: Regular Addtl Attending Provider Instructions: You have surgical glue called dermabond on your surgical site incisions. You may shower with this on. This will tend to come off within a couple of weeks. Do not pick at it. Continue your antibiotics as instructed You need to make a follow up with GI as an outpatient , please call their office. Eliquis has been discontinued Pending Studies at Discharge: Yes Studies:: surgical pathology Stand-Alone Forms: [facility], Smoking Cessation Medications and DC Order Prescriptions: Continued tamsulosin [Flomax] 0.4 mg capsule 0.4 mg PO DAILY zinc 50 mg Tablet 50 mg PO DAILY cholecalciferol (vitamin D3) [Vitamin D3] 25 mcg (1,000 unit) Tablet 25 mcg PO DAILY cyanocobalamin (vitamin B-12) [Vitamin B-12] 1,000 mcg Tablet 1,000 mcg PO DAILY Discontinued Eliquis 5 mg (74 tabs) tablets,dose pack 5 mg PO BID Qty: 74 0RF Discharge Orders: Discharge Order (Routine); Ordered 02/03/23 Ordered By: Rick Pretty/Other Patient Handouts: DVT Post Op Prevention Admission Data Admit Date/Time: 02/02/23 13:18 Attending Provider: Rick Chan Admit Provider: Dilip Han Primary Care Provider: Dave Mary Other Providers: Dilip Han ; Scott Kolb ; Basil Jeter Other Interventions: Discharge Summary Assessment (RN) Last Done: 02/03/23 10:51 Coding Level of Care Code 94913 INP/OBS DISCH >30 MIN Diagnoses Epigastric pain R10.13 History of pulmonary embolus (PE) Z86.711 Elevated transaminase level R74.01 BPH (benign prostatic hyperplasia) N40.0
--- NOTE | 2023-02-03 11:46 | Surgery Progress Note ---
Date of Service February 03, 2023 Assessment & Plan (1) Choledocholithiasis: Plan: Doing as expected. Okay for discharge from our standpoint. Postoperative instructions reviewed follow-up in 1 to 2 weeks. Admission and Anticipated Discharge Date Admission Date: February 02, 2023 Subjective Patient seen. Doing fine. Tolerated breakfast. Physical Exam Physical Exam: Alert. No acute distress Abdomen is soft. Expected tenderness. Results & Data Vital Signs (Past 12 Hours) Vital Signs Temp Pulse Resp BP Pulse Ox O2 Del Method 02/03/23 10:51 36.7 C 58 L 16 144/73 H 96 02/03/23 08:16 36.7 C 58 L 16 144/73 H 96 Room Air 02/03/23 05:25 36.8 C 58 L 18 143/83 H 97 Room Air 02/03/23 01:57 36.7 C 58 L 16 143/70 H 98 Room Air PG Care Time/CCT Total # of Minutes Spent Total Time Spent with Patient: Total time spent is greater than 50% in coordination of care (as documented) at patient's floor/unit and/or counseling patient: Coding Level of Care Code 73245 Post Operative Follow-Up Diagnoses Choledocholithiasis K80.50
== END 2023-02-03 12:40 | disposition home or self-care (01) | DRG 419 ==
LOC: ED 08:36 → 2W 08:36 → SUATTDRO 12:18 → 2W 15:11 → 3E 02-02 18:15